=== PATIENT | male | born 1970 | race Caucasian/White ===

== ENCOUNTER → 2019-06-03 09:34 | Outpatient (CLI) | payer OTHER, SELFPAY ==
[2019-06-03 09:55] LABS: Basophils # 0.1 K/mm3 (0-0.2); Eosinophils # 0.4 K/mm3 (0.0-0.4); Lymphocytes # 2.2 K/mm3 (0.7-4.5); Monocytes # 0.3 K/mm3 (0.1-1.0); Red Cell Distribution Width 13.3 % (11.5-17.5)
[2019-06-03 10:05] LABS: Basophils % 2.4 % (0.1-2.0); Eosinophils % 7.3 % (0.1-12.0); Hematocrit 58.8 % (42.0-52.0); Lymphocytes % 39.5 % (10-50); Mean Corpuscular HGB Conc 33.4 g/dL (31.8-35.4); Mean Corpuscular Hemoglobin 35.5 pg (27.0-31.2); Mean Corpuscular Volume 106.4 fl (80-94); Neutrophils # 2.5 K/mm3 (1.8-7.8); Neutrophils % 45.7 % (37.0-80.0); Platelet Count 236 K/mm3 (142-424); Red Blood Count 5.53 M/mm3 (4.60-6.20); White Blood Count 5.4 K/mm3 (4.8-10.8)
[2019-06-03 10:14] LABS: Hemoglobin 19.6 g/dL (14.1-18.0)
[2019-06-03 10:49] LABS: Alanine Aminotransferase 128 U/L (12-78); Albumin Level 4.1 gm/dL (3.4-5.0); Albumin/Globulin Ratio 1.1 (1.1-1.8); Alkaline Phosphatase 91 U/L (46-116); Anion Gap 17.1 mEq/L (5-15); Aspartate Amino Transferase 114 U/L (15-37); Bilirubin,Total 0.9 mg/dL (0.2-1.0); Blood Urea Nitrogen 10 mg/dL (7-18); Carbon Dioxide 24 mmol/L (21.0-32.0); Chloride 100 mmol/L (98-107); Chol/HDL Ratio 3.9 (1-3.5); Cholesterol 282 mg/dL (140-200); Creatinine,Serum 0.79 mg/dL (0.70-1.30); Estimated Glomerular Filt Rate 103 ml/min (>60); GFR (African American) 125 ML/MIN (>60); Globulin 3.8 gm/dl (1.3-3.2); Glucose 94 mg/dL (74-106); HDL Cholesterol 72 mg/dL (27-67); LDL Cholesterol 188 mg/dL (0-130); Potassium 4.1 mmoL/L (3.5-5.1); Prostate Specific Ag Screen 0.5 ng/mL (0.0-4.0); Sodium 137 mmol/L (136-145); Total Protein,Serum 7.9 gm/dL (6.4-8.2); Triglycerides 111 mg/dL (30-200); VLDL Cholesterol 22 mg/dL (0-40)
[2019-06-03 15:08] LABS: Reticulocyte % (Auto) 0.8 % (0.9-3.2)
[2019-06-04 11:11] LABS: Folate 3.3 ng/mL (>3.0)
[2019-06-04 11:12] LABS: Vitamin B12 470 pg/mL (232-1245)
== END ==
PROVIDERS: Visit Provider Internal Medicine
DX: I10 Essential (primary) hypertension (principal); R71.8 Other abnormality of red blood cells; D75.89 Other specified diseases of blood and blood-forming organs; E78.5 Hyperlipidemia, unspecified; R39.198 Other difficulties with micturition
CPT/HCPCS: 36415; 80053; 80061; 82607; 82746; 85025; 85044; G0103

== ENCOUNTER 2019-06-06 11:09 | Outpatient (CLI) | payer OTHER, SELFPAY ==
[2019-06-06 11:40] VITALS: BP 151/94; PULSE 86; RESP 18
[2019-06-06 12:01] VITALS: BMI 31.8
--- NOTE | 2019-06-06 12:20 | PC.NURSE ---
1220-phlebotomy finished;collected recheck H&H
[2019-06-06 12:43] VITALS: BP 158/96; PULSE 83; RESP 18
[2019-06-06 12:51] LABS: Hematocrit 61.6 % (42.0-52.0)
[2019-06-06 12:52] LABS: Hemoglobin 19.1 g/dL (14.1-18.0)
== END 2019-06-06 12:43 | disposition home or self-care (01) ==
LOC: INF 11:10
PROVIDERS: PCP Internal Medicine; Visit Provider Internal Medicine
DX: R71.8 Other abnormality of red blood cells (principal)
CPT/HCPCS: 85014; 85018; 99195

== ENCOUNTER 2019-06-13 10:48 | Outpatient (CLI) | payer OTHER, SELFPAY ==
[2019-06-13 10:52] VITALS: BMI 31.5
[2019-06-13 11:12] LABS: Hematocrit 54.6 % (42.0-52.0)
[2019-06-13 11:19] LABS: Hemoglobin 18.5 g/dL (14.1-18.0)
[2019-06-13 11:35] VITALS: BP 189/107; PULSE 69; RESP 18
[2019-06-13 11:55] VITALS: BP 180/106; PULSE 68; RESP 18
== END 2019-06-13 12:00 | disposition home or self-care (01) ==
LOC: INF 10:49
PROVIDERS: Visit Provider Internal Medicine
DX: R71.8 Other abnormality of red blood cells (principal)
CPT/HCPCS: 36415; 85014; 85018; 99195

== ENCOUNTER 2019-06-21 10:58 | Outpatient (CLI) | payer OTHER, SELFPAY ==
[2019-06-21 11:00] VITALS: BMI 31.5
[2019-06-21 11:17] LABS: Hematocrit 51.5 % (42.0-52.0); Hemoglobin 17.3 g/dL (14.1-18.0)
[2019-06-21 11:50] VITALS: BP 170/107; PULSE 76; RESP 18
[2019-06-21 12:15] VITALS: BP 152/93; PULSE 66; RESP 18
== END 2019-06-21 12:15 | disposition home or self-care (01) ==
LOC: INF 10:58
PROVIDERS: Visit Provider Internal Medicine
DX: R71.8 Other abnormality of red blood cells (principal)
CPT/HCPCS: 36415; 85014; 85018; 99195

== ENCOUNTER → 2019-08-08 11:24 | Outpatient (CLI) | payer OTHER, SELFPAY ==
[2019-08-08 12:08] LABS: Hematocrit 50.2 % (42.0-52.0); Hemoglobin 16.5 g/dL (14.1-18.0)
== END ==
PROVIDERS: Visit Provider Internal Medicine
DX: D75.89 Other specified diseases of blood and blood-forming organs (principal)
CPT/HCPCS: 36415; 85014; 85018

== ENCOUNTER → 2019-12-07 10:56 | Outpatient (CLI) | payer OTHER, SELFPAY ==
[2019-12-07 11:26] LABS: Basophils # 0.5 K/mm3 (0-0.2); Basophils % 7.4 % (0.1-2.0); Eosinophils # 0.3 K/mm3 (0.0-0.4); Hematocrit 52.1 % (42.0-52.0); Hemoglobin 17.1 g/dL (14.1-18.0); Lymphocytes # 2.8 K/mm3 (0.7-4.5); Lymphocytes % 44.8 % (10-50); Mean Corpuscular HGB Conc 32.8 g/dL (31.8-35.4); Mean Corpuscular Hemoglobin 36.5 pg (27.0-31.2); Mean Corpuscular Volume 111.3 fl (80-94); Mean Platelet Volume 10.5 fl (7.4-10.4); Monocytes # 0.3 K/mm3 (0.1-1.0); Monocytes % 4.7 % (1.7-9.3); Neutrophils # 2.9 K/mm3 (1.8-7.8); Neutrophils % 46.5 % (37.0-80.0); Platelet Count 234 K/mm3 (142-424); Red Blood Count 4.69 M/mm3 (4.60-6.20); Red Cell Distribution Width 18.4 % (11.5-17.5); White Blood Count 6.3 K/mm3 (4.8-10.8)
[2019-12-07 11:53] LABS: Chloride 104 mmol/L (98-107); Potassium 4.3 mmoL/L (3.5-5.1); Sodium 138 mmol/L (136-145)
[2019-12-07 11:55] LABS: Blood Urea Nitrogen 13 mg/dl (9-20); Estimated Glomerular Filt Rate 89 ml/min (>60); GFR (African American) 108 ML/MIN (>60)
[2019-12-07 11:56] LABS: Alanine Aminotransferase 65 U/L (12-78); Albumin Level 4.5 g/dl (3.5-5.0); Albumin/Globulin Ratio 1.6 (1.1-1.8); Alkaline Phosphatase 84 U/L (38-126); Anion Gap 11.3 mEq/L (5-15); Aspartate Amino Transferase 79 U/L (17-59); Bilirubin,Total 0.6 mg/dl (0.2-1.3); Calcium 9.6 mg/dl (8.4-10.2); Carbon Dioxide 27 mmol/L (22.0-30.0); Cholesterol 170 mg/dl (140-200); Globulin 2.8 g/dL (1.3-3.2); Glucose 101 mg/dl (74-100); HDL Cholesterol 85 mg/dl (40-60); Total Protein,Serum 7.3 g/dl (6.3-8.2); Triglycerides 136 mg/dl (30-150); VLDL Cholesterol 27 mg/dL (0-40)
[2019-12-07 12:26] LABS: Prostate Specific Ag, Diagnost 0.422 ng/ml (0.0-4.0)
== END ==
PROVIDERS: Visit Provider Internal Medicine
DX: D75.1 Secondary polycythemia (principal); I10 Essential (primary) hypertension; E78.5 Hyperlipidemia, unspecified; N40.1 Benign prostatic hyperplasia with lower urinary tract symptoms
CPT/HCPCS: 36415; 80053; 80061; 84153; 85025

== ENCOUNTER 2020-07-02 15:46 | Emergency (ER) | payer OTHER, SELFPAY ==
[2020-07-02 16:00] VITALS: BP 140/101; PULSE 104; RESP 14; TEMP 36.1; O2SAT 96; BMI 31.5
--- NOTE | 2020-07-02 16:14 | PC.NURSE ---
SPOKE TO BERNIE MEDINA WHO GOT CLEARANCE FROM ESSENCE BUCKLEY TO CHANGE ORDER TO IN HOUSE COVID TEST
--- NOTE | 2020-07-02 16:21 | HMH.EDUTC ---
[facility] [place] Clinical Impression: Viral syndrome, Bronchitis, Tobacco dependence Disposition: Home, Self-Care Condition on Discharge: Good Instructions: DI for Viral Syndrome, Preventing the Spread of Coronavirus Discharge Instructions Additional Instructions: Drink plenty of fluids. Take tylenol for pain or fever. Return if you begin to have difficulty breathing. Follow up with your regular doctor. GO TO THE ER FOR ANY WORSENING SYMPTOMS You need to stop smoking pili. Prescriptions: Benzonatate [Tessalon Perle 100mg Cap] 100 mg PO TIDP PRN #30 cap PRN Reason: Cough Transmission Status: Re[facility] by [facility] Azithromycin [Z-Malcolm 250mg Tab*] 250 mg PO UD DOSE PK #6 tab Transmission Status: Received by [facility] Referrals: Jose Miguel Fuller [Primary Care Provider] - Time of Disposition: 17:19 Medical Decision Making - Medical Records Medical records reviewed: No: I reviewed the patient's medical records. - Donovan Inquiry Pt receiving controlled substance: No Vital Signs: 07/02/20 16:00 07/02/20 17:21 Temperature 97.0 F L 97.0 F L Temperature Source Oral Pulse Rate 104 H Pulse Rate [Right Brachial] 104 H Respiratory Rate 14 14 Blood Pressure 140/101 H Blood Pressure [Right Arm] 140/101 H Blood Pressure Mean [Right Arm] 114 Blood Pressure Source [Right Arm] Automatic Cuff Blood Pressure Position [Right Arm] Sitting 02 Sat by Pulse Oximetry 96 Oxygen Delivery Method Room Air - Lab Data Lab Results 07/02/20 16:37: Influenza Type A Ag Negative, Influenza Type B Ag Negative 07/02/20 16:37: Strep Scn Rapid Clinic Negative Orders (Tests/Meds): ORDERS Category Date Time Status Strep Screen Confirmation Stat Micro 07/02/20 16:37 Received - Radiology Data #1 Image(s): Chest Image Reviewed: Yes I reviewed the patient's radiology image, Yes I have reviewed radiologist's interpretation Preliminary Findings: No Infiltrates Seen PROCEDURE: XR CHEST 2V CLINICAL HISTORY: COUGH Smoker COMPARISON: No exams were available for comparison FINDINGS: The cardiomediastinal silhouette and pulmonary vascularity are within normal limits. Hyperinflation with attenuation of the peripheral pulmonary vessels consistent with COPD. No lobar consolidation or collapse. No acute bony abnormalities. IMPRESSION: COPD. No acute finding Dictated by: Trevor Barnett MD 07/02/2020 17:25 Trevor Barnett MD in [place] 07/02/2020 17:25 [facility] [place] - General Stated complaint: SYMPTOMS, COVID TEST,FLU TEST Time Seen by Provider: 07/02/20 16:21 Mode of Arrival: Ambulatory Source of Information: Patient Limitations: No Limitations Description of Symptoms (Recalled from Triage Doc. by RN): PATIENT C/O NAUSEA, DIARRHEA, BODY ACHES, AND FATIGUE THAT STARTED THURSDAY. REQUESTING A COVID TEST. HAD FIRST PART OF COVID VACCINE ON 06/12/20 HEENT Symptoms (Recalled from RN notes): No Resp Symptoms (Recalled from RN notes): No Skin Symptoms (Recalled from RN notes): No MS Symptoms (Recalled from RN notes): No Functional Status (Recalled from RN notes): WNL - History of Present Illness Provider Complaint: He states that he has been feeling bad for a week. He c/o of poor appetite, low grade fever, chilling, body aches and sore throat. He denies any known exposure to covid-19. He denies shortness of breath. He has smoked cigarettes for the past 30 years. - Related Data Home Medications Medication Instructions Recorded Confirmed bisoprolol 10 1 tab PO DAILY 90 Days #90 07/02/17 07/02/20 mg-hydrochlorothiazide 6.25 mg tablet sertraline 50 mg tablet 50 mg PO DAILY 30 Days #30 07/02/17 07/02/20 Atorvastatin Calcium [Lipitor 40mg 40 mg PO HS 07/02/20 07/02/20 Tablet*] Losartan Potassium [Cozaar 100mg 100 mg PO DAILY 07/02/20 07/02/20 Tablets] Previous Rx's Medication Instructions Recorded Azithromycin [Z-Malcolm 250mg Tab*] 250 mg PO UD DOSE P
--- NOTE | 2020-07-02 16:54 | XR_ITS ---
PROCEDURE: XR CHEST 2V CLINICAL HISTORY: COUGH Smoker COMPARISON: No exams were available for comparison FINDINGS: The cardiomediastinal silhouette and pulmonary vascularity are within normal limits. Hyperinflation with attenuation of the peripheral pulmonary vessels consistent with COPD. No lobar consolidation or collapse. No acute bony abnormalities. IMPRESSION: COPD. No acute finding Dictated by: Trevor Barnett MD 07/02/2020 17:25 Trevor Barnett MD in OV 07/02/2020 17:25
[2020-07-02 17:21] VITALS: BP 140/101; PULSE 104; RESP 14; TEMP 36.1; O2SAT 96
[2020-07-02 17:32] LABS: UTC Strep Screen (Rapid) Negative (Negative)
[2020-07-02 17:33] LABS: UTC Influenza A Antigen Negative (Negative)
[2020-07-02 17:34] LABS: UTC Influenza B Antigen Negative (Negative)
== END 2020-07-02 17:23 | disposition home or self-care (01) ==
PROVIDERS: Emergency Provider Nurse Practitioner Family; PCP Internal Medicine
DX: Z20.822 Contact with and (suspected) exposure to COVID-19 (principal); B34.9 Viral infection, unspecified; J20.9 Acute bronchitis, unspecified; F17.210 Nicotine dependence, cigarettes, uncomplicated; I10 Essential (primary) hypertension; E78.5 Hyperlipidemia, unspecified; Z79.899 Other long term (current) drug therapy
CPT/HCPCS: 71046; 87804; 87880; 99202; G0463; U0003

== ENCOUNTER → 2021-03-23 11:05 | Outpatient (CLI) | payer OTHER, SELFPAY ==
[2021-03-23 12:33] LABS: Influenza A, PCR Not Detected (NotDetected); Influenza B, PCR Not Detected (NotDetected)
[2021-03-23 13:21] LABS: Coronavirus 19, PCR Detected (NotDetected)
== END ==
PROVIDERS: PCP Emergency Medicine; Visit Provider Emergency Medicine
DX: Z20.822 Contact with and (suspected) exposure to COVID-19 (principal); U07.1 COVID-19
CPT/HCPCS: C9803; U0003; U0005

== ENCOUNTER 2021-03-23 13:57 | Outpatient (CLI) | payer OTHER, SELFPAY ==
[2021-03-23 14:30] VITALS: BP 166/94; PULSE 78; RESP 16; TEMP 37.1; O2SAT 96
[2021-03-23 14:45] VITALS: BP 162/92; PULSE 74; RESP 16; O2SAT 95
[2021-03-23 15:00] VITALS: BP 155/95; PULSE 75; RESP 16; TEMP 37; O2SAT 94
[2021-03-23 15:15] VITALS: BP 157/94; PULSE 74; RESP 16; O2SAT 95
[2021-03-23 15:30] VITALS: BP 150/97; PULSE 75; RESP 16; O2SAT 94
[2021-03-23 15:45] VITALS: BP 155/84; PULSE 74; RESP 16; O2SAT 95
== END 2021-03-23 16:25 | disposition home or self-care (01) ==
LOC: COVID.OUT 13:58 → INF 14:07
PROVIDERS: PCP Emergency Medicine; Visit Provider Emergency Medicine
DX: U07.1 COVID-19 (principal); Z23 Encounter for immunization
CPT/HCPCS: 96365

== ENCOUNTER → 2021-12-30 09:35 | Outpatient (CLI) | payer OTHER, SELFPAY ==
[2021-12-30 10:04] LABS: Basophils # 0.1 K/mm3 (0-0.2); Basophils % 1.7 % (0.1-2.0); Eosinophils # 0.4 K/mm3 (0.0-0.4); Eosinophils % 4.4 % (0.1-12.0); Hemoglobin 17.1 g/dL (14.1-18.0); Lymphocytes # 3.5 K/mm3 (0.7-4.5); Mean Corpuscular HGB Conc 34.2 g/dL (31.8-35.4); Mean Corpuscular Hemoglobin 36.7 pg (27.0-31.2); Mean Corpuscular Volume 107.4 fl (80-94); Mean Platelet Volume 7.5 fl (7.4-10.4); Monocytes # 0.3 K/mm3 (0.1-1.0); Monocytes % 4.1 % (1.7-9.3); Neutrophils # 3.9 K/mm3 (1.8-7.8); Neutrophils % 46.9 % (37.0-80.0); Platelet Count 258 K/mm3 (142-424); Red Blood Count 4.65 M/mm3 (4.60-6.20); Red Cell Distribution Width 13.2 % (11.5-17.5); White Blood Count 8.3 K/mm3 (4.8-10.8)
[2021-12-30 10:26] LABS: Alanine Aminotransferase 36 U/L (12-78); Albumin Level 4.4 g/dl (3.5-5.0); Albumin/Globulin Ratio 1.6 (1.1-1.8); Alkaline Phosphatase 130 U/L (38-126); Anion Gap 10.4 mEq/L (5-15); Aspartate Amino Transferase 59 U/L (17-59); Bilirubin,Total 0.3 mg/dl (0.2-1.3); Blood Urea Nitrogen 12 mg/dl (9-20); Calcium 9.8 mg/dl (8.4-10.2); Carbon Dioxide 25 mmol/L (22.0-30.0); Chloride 108 mmol/L (98-107); Chol/HDL Ratio 3.3 (1-3.5); Cholesterol 207 mg/dl (140-200); Estimated Glomerular Filt Rate 101 ml/min (>60); GFR (African American) 122 ML/MIN (>60); Globulin 2.8 g/dL (1.3-3.2); Glucose 118 mg/dl (74-100); HDL Cholesterol 62 mg/dl (40-60); Potassium 4.4 mmoL/L (3.5-5.1); Sodium 139 mmol/L (136-145); Total Protein,Serum 7.2 g/dl (6.3-8.2); Triglycerides 269 mg/dl (30-150); VLDL Cholesterol 54 mg/dL (0-40)
[2021-12-30 10:37] LABS: Direct LDL Cholesterol 92.58 mg/dL (100-129)
[2021-12-30 10:43] LABS: 25-OH Vitamin D, Total 44.5 ng/mL (30-100); Free T4 (Free Thyroxine) 0.72 ng/dl (0.78-2.19)
[2021-12-30 10:57] LABS: Thyroid Stimulating Hormone 1.49 uIU/mL (0.465-4.68)
== END ==
PROVIDERS: PCP Emergency Medicine; Visit Provider Emergency Medicine
DX: E55.9 Vitamin D deficiency, unspecified (principal); I10 Essential (primary) hypertension; E78.5 Hyperlipidemia, unspecified; E66.9 Obesity, unspecified; Z68.31 Body mass index [BMI] 31.0-31.9, adult; Z79.899 Other long term (current) drug therapy
CPT/HCPCS: 36415; 80053; 80061; 82306; 84439; 84443; 85025

== ENCOUNTER 2022-04-27 17:41 | Inpatient (IN) | payer OTHER, SELFPAY ==
[2022-04-27 17:42] VITALS: BP 141/82; PULSE 92; RESP 18; TEMP 36.8; O2SAT 96; BMI 31.5
--- NOTE | 2022-04-27 18:06 | CT_ITS ---
PROCEDURE INFORMATION: Exam: CT Abdomen And Pelvis With Contrast Exam date and time: 04/27/2022 6:30 PM Age: 52 years old Clinical indication: Abdominal pain; Generalized; Prior surgery; Surgery date: 6+ months; Surgery type: Umbilical hernia; Additional info: Abdomen pain TECHNIQUE: Imaging protocol: Computed tomography of the abdomen and pelvis with contrast. Radiation optimization: All CT scans at this facility use at least one of these dose optimization techniques: automated exposure control; mA and/or kV adjustment per patient size (includes targeted exams where dose is matched to clinical indication); or iterative reconstruction. Contrast material: ISOVUE; Contrast volume: 75 ml; Contrast route: IV; COMPARISON: CR XR CHEST 2V 07/02/2020 5:02 PM FINDINGS: Liver: Hepatic steatosis. Gallbladder and bile ducts: Mild gallbladder distension. Small gallstones. Pancreas: Normal. No ductal dilation. Spleen: Normal. No splenomegaly. Adrenal glands: Normal. No mass. Kidneys and ureters: 7 mm nonobstructing calculus lower pole right kidney. Bilateral pars defects. Associated 8 mm anterolisthesis of L5 with respect S1. Stomach and bowel: See Intraperitoneal space finding. Appendix: No evidence of appendicitis. Intraperitoneal space: Stranding of the mesenteric fat surrounding the pancreas. Small amount of mesenteric stranding in association with the duodenum. Associated mild wall thickening. Findings compatible with mild changes of duodenitis. Vasculature: Scattered regions of atherosclerotic vascular calcification within the abdominal aorta and common iliac arteries. Lymph nodes: Unremarkable. No enlarged lymph nodes. Urinary bladder: Unremarkable as visualized. Reproductive: Unremarkable as visualized. Bones/joints: See Kidneys and ureters finding. Soft tissues: Bilateral fat filled inguinal hernias. IMPRESSION: 1. Findings compatible with pancreatitis. 2. Small amount of mesenteric stranding in association with the duodenum. Associated mild wall thickening. Findings compatible with mild changes of duodenitis. 3. Please see above report for discussion of nonacute findings.
[2022-04-27 18:10] LABS: Microscopic, Urine URINE MICROSCOPIC (MICROSCOPIC)
[2022-04-27 18:13] LABS: Appearance,Urine CLEAR (Clear); Blood, Urine Negative (Negative); Color,Urine YELLOW (Yellow); Glucose,Urine (UA) Negative (Negative); Ketones,Urine Negative (Negative); Leukocyte Esterase,Urine Negative (Negative); Nitrate,Urine Negative (Negative); PH,Urine 5.5 (5.0-8.5); Protein,Urine 1+ (Negative); Specific Gravity, Urine >= 1.030 (1.005-1.030); Urobilinogen,Urine 0.2 EU/dl (0.2)
[2022-04-27 18:17] LABS: Alanine Aminotransferase 64 U/L (12-78); Albumin Level 4.3 g/dl (3.5-5.0); Albumin/Globulin Ratio 1.4 (1.1-1.8); Alkaline Phosphatase 185 U/L (38-126); Amorphous Sediment,Urine Trace /lpf; Amylase 695 U/L (30-110); Anion Gap 17.1 mEq/L (5-15); Aspartate Amino Transferase 174 U/L (17-59); Bilirubin,Urine Negative (Negative); Blood Urea Nitrogen 21 mg/dl (9-20); Calcium 8.9 mg/dl (8.4-10.2); Carbon Dioxide 24 mmol/L (22.0-30.0); Chloride 96 mmol/L (98-107); Creatinine Clearance Estimated 149 mL/min (50-200); Estimated Glomerular Filt Rate 101 ml/min (>60); GFR (African American) 122 ML/MIN (>60); Glucose 134 mg/dl (74-100); Mucus,Urine Trace /lpf; Potassium 4.1 mmoL/L (3.5-5.1); Sodium 133 mmol/L (136-145); Total Protein,Serum 7.3 g/dl (6.3-8.2)
[2022-04-27 18:18] LABS: Basophils # 0.3 K/mm3 (0-0.2); Basophils % 1.4 % (0.1-2.0); Eosinophils # 0.2 K/mm3 (0.0-0.4); Eosinophils % 1.1 % (0.1-12.0); Hematocrit 52.8 % (42.0-52.0); Hemoglobin 17.2 g/dL (14.1-18.0); Lymphocytes # 3.2 K/mm3 (0.7-4.5); Lymphocytes % 18.1 % (10-50); Mean Corpuscular HGB Conc 32.6 g/dL (31.8-35.4); Mean Corpuscular Hemoglobin 34.8 pg (27.0-31.2); Mean Corpuscular Volume 106.9 fl (80-94); Mean Platelet Volume 8.3 fl (7.4-10.4); Monocytes # 0.6 K/mm3 (0.1-1.0); Monocytes % 3.5 % (1.7-9.3); Neutrophils # 13.4 K/mm3 (1.8-7.8); Neutrophils % 75.9 % (37.0-80.0); Platelet Count 272 K/mm3 (142-424); Red Blood Count 4.94 M/mm3 (4.60-6.20); Red Cell Distribution Width 13.5 % (11.5-17.5); White Blood Count 17.6 K/mm3 (4.8-10.8)
[2022-04-27 18:20] LABS: MANUAL DIFFERENTIAL MANUAL DIFFERENTIAL (MANUAL DIFF)
[2022-04-27 18:49] LABS: Lipase 5849 U/L (23-300)
[2022-04-27 18:55] LABS: Lymphocytes % 18 % (10-50); Neutrophils % 78 % (42-76); Total Cells Counted 100
[2022-04-27 18:56] LABS: Hypersegmented Neutrophils 2+; Macrocytosis 2+; Platelet Estimate Normal
[2022-04-27 19:00] VITALS: BP 141/85; PULSE 79; O2SAT 92
--- NOTE | 2022-04-27 19:25 | HMH.EDGENADL ---
Discharge Plan Disposition Patient Disposition: Admitted As Inpatient Condition: Fair Chief Complaint: Abdominal Pain Prescriptions Prescriptions: No Action atorvastatin 40 mg tablet See Rx Instructions .ROUTE .COMPLEX Qty: 30 3RF Dose Instruction: TAKE ONE TABLET BY MOUTH EVERY DAY AT BEDTIME FOR cholesterol Rx Instructions: TAKE ONE TABLET BY MOUTH EVERY DAY AT BEDTIME FOR cholesterol bisoprolol-hydrochlorothiazide 10-6.25 mg tablet See Rx Instructions .ROUTE .COMPLEX Qty: 30 3RF Dose Instruction: TAKE ONE TABLET BY MOUTH EVERY DAY Rx Instructions: TAKE ONE TABLET BY MOUTH EVERY DAY losartan 100 mg tablet See Rx Instructions .ROUTE .COMPLEX Qty: 30 3RF Dose Instruction: TAKE ONE TABLET BY MOUTH EVERY DAY FOR hypertension Rx Instructions: TAKE ONE TABLET BY MOUTH EVERY DAY FOR hypertension sertraline 50 mg tablet See Rx Instructions .ROUTE .COMPLEX Qty: 30 3RF Dose Instruction: TAKE ONE TABLET BY MOUTH EVERY DAY Rx Instructions: TAKE ONE TABLET BY MOUTH EVERY DAY amlodipine [Norvasc] 5 mg tablet 5 mg PO DAILY Qty: 30 3RF Paxlovid (EUA) 300 mg (150 mg x 2)-100 mg tablets,dose pack See Rx Instructions PO .COMPLEX Qty: 30 0RF Rx Instructions: take TWO 150 mg tablets of nirmatrelvir with ONE 100 mg tablet of ritonavir twice daily for 5 days PO Referrals Follow up/Referrals: Khurram Ledesma MD [Primary Care Provider] - See instructions Clinical Impressions Clinical Impression: Acute gallstone pancreatitis, Cholelithiasis Discharge ED Provider: Jose Roberto Turcios General Adult HPI General Chief complaint: Abdominal Pain Stated complaint: upper adm pain Time Seen by Provider: 04/27/22 19:35 Mode of Arrival: Ambulatory Source of Information: Patient Limitations: No Limitations Description of Symptoms (Recalled from ER Triage Doc. by RN): c/o center abdomen pain and vomiting that started 2 days ago, normal BM this am History of Present Illness HPI narrative: Complains of epigastric pain and vomiting that started on Thursday, 2 days ago. Denies fever. Denies radiation of pain. States he has had prior diverticulitis. Has never had pancreatitis. States he drinks 2 drinks of alcohol per evening. He is a smoker. He does not have diabetes. He does have hyperlipidemia. Related Data Previous Rx's Medication Instructions Recorded amlodipine 5 mg tablet (Norvasc) 5 mg PO DAILY #30 tabs 12/31/21 atorvastatin 40 mg tablet See Rx Instructions .Route 12/31/21 .COMPLEX #30 tabs bisoprolol 10 See Rx Instructions .Route 12/31/21 mg-hydrochlorothiazide 6.25 mg .COMPLEX #30 tabs tablet losartan 100 mg tablet See Rx Instructions .Route 12/31/21 .COMPLEX #30 tabs sertraline 50 mg tablet See Rx Instructions .Route 12/31/21 .COMPLEX #30 tabs nirmatrelvir 300 mg (150 mg See Rx Instructions PO .COMPLEX 02/28/22 x2)-ritonavir 100 mg tablet,dose #30 tabs pack(EUA) (Paxlovid) Allergies Allergy/AdvReac Type Severity Reaction Status Date / Time No Known Allergies Allergy Verified 12/31/21 11:34 [facility] Social History (Updated 04/27/22 @ 19:51 by Jose Roberto Turcios MD) Smoking Status: Current every day smoker tobacco type: cigarettes packs per day: 1 alcohol intake: current counseling provided: none substance use type: denies use current occupational status: employed Travel in the last 8 weeks: None household members: spouse housing: house ROS Obtained: Yes Systems reviewed as appropriate & no additional complaints except as documented Constitutional Constitutional: Denies fever(s), Denies headache(s) and Denies weakness ENT Ears, Nose, Mouth, and Throat: Denies headache(s), Denies nasal discharge and Denies sore throat Cardiovascular Cardiovascular: Denies chest pain Respiratory Respiratory: Denies shortness of breath and Denies cough Gastrointestinal Gastrointestingal: Reports abdominal pain, marya
--- NOTE | 2022-04-27 19:39 | PC.NURSE ---
Dr. Turcios at BS
--- NOTE | 2022-04-27 19:41 | PC.NURSE ---
Dr. Turcios speaking with Dr. Salmon at this time.
[2022-04-27 20:00] VITALS: BP 157/91; PULSE 82; O2SAT 94
[2022-04-27 20:00] LABS: Coronavirus 19, PCR Not Detected (NotDetected); Influenza A, PCR Not Detected (NotDetected); Influenza B, PCR Not Detected (NotDetected)
--- NOTE | 2022-04-27 20:11 | US_ITS ---
PROCEDURE INFORMATION: Exam: US Abdomen, Limited; Right Upper Quadrant Exam date and time: 04/27/2022 8:23 PM Age: 52 years old Clinical indication: Abdominal pain; Other: Ruq pain; Prior surgery; Surgery date: 6+ months; Surgery type: Past HX of umbilical hernia repair; Additional info: Findings of mildly dilated gb and gallstones on CT TECHNIQUE: Imaging protocol: Real time ultrasound of the abdomen with image documentation. Limited exam focused on the right upper quadrant. COMPARISON: CT ABDOMEN PELVIS W CON 04/27/2022 6:30 PM FINDINGS: Liver: Normal. No masses. Gallbladder: Mild gallbladder distension. Cholelithiasis. Sludge also demonstrated within the gallbladder. Gallbladder wall thickened to 6 mm. Per technologist's annotation, positive Reich sign when scanning the gallbladder. Biliary ducts: Normal. No stones. No dilation. Pancreas: Pancreas not visualized secondary to gas-filled bowel loops. Right kidney: Right kidney measured 10.8 x 6.4 x 6.2 cm in length, AP and transverse dimensions. Portal venous: Hepatopetal flow within the portal vein. IMPRESSION: Findings compatible with cholelithiasis and cholecystitis.
--- NOTE | 2022-04-27 20:15 | PC.NURSE ---
Pt gone to RAD for U/S
--- NOTE | 2022-04-27 20:18 | EXP.HP ---
History of Present Illness *Admission Date: 04/27/22 *Reason for visit:: Abdominal Pain *History of present illness: Mr. Nixon is a 52-year-old male with a past medical history of HTN, Hyperlipidemia, Anxiety Disorder and Chronic Tobacco Use. [facility] 2.5 day history of abdominal pain in the bilateral mid-epigastric region associated with nausea and an episode of vomiting that has worsened over a 2.5 day period. Work-up in the ER included a CT of the abdomen and pelvis that showed mild gallbladder distention and small gallstones with no ductal dilation, stranding of the mestenteric fat surrounding the pancreas, elevated Amylase 695 and Lipase 5849. Total Bilirubin 2.0. UA was umremarkable. The patient will be admitted with initial impression: Acute Pancreatitis. He will be made NPO, given iv fluids, antiemetic, analgesics, we will trend Lipase and Amylase. US of the Right upper quadrant will be ordered for the am along with Surgery consult for evaluation and further recommendations. The plan of care was discussed with the patient and daughter at bedside. The patient verbalized understanding and agreement with the plan of care. [facility] Medical History (Updated 04/28/22 @ 07:51 by Mac Salomn MD) Anxiety disorder Hyperlipidemia Hypertension Surgical History H/O umbilical hernia repair Family History Family history of hypertension Father Cancer Unknown Social History Smoking Status: Current every day smoker tobacco type: cigarettes packs per day: 1 alcohol intake: current counseling provided: none substance use type: denies use current occupational status: employed Travel in the last 8 weeks: None household members: spouse housing: house Review of Systems Review of Systems Review of systems:: pertinent systems reviewed and negative unless documented below Constitutional Constitutional: Reports system reviewed and no additional complaints, except as documented Eyes Eyes: Reports system reviewed and no additional complaints, except as documented ENT Ears, Nose, Mouth, and Throat: Reports system reviewed and no additional complaints, except as documented *Cardiovascular Cardiovascular: Reports system reviewed and no additional complaints, except as documented *Respiratory Respiratory: Reports system reviewed and no additional complaints, except as documented *Gastrointestinal Gastrointestinal: Reports abdominal pain, Reports nausea and Reports vomiting *Genitourinary Genitourinary: Reports system reviewed and no additional complaints, except as documented *Musculoskeletal Musculoskeletal: Reports system reviewed and no additional complaints, except as documented and Denies numbness Integumentary/Breasts Skin/Breast: Reports system reviewed and no additional complaints, except as documented *Neurologic Neurologic: Denies numbness Psychiatric Psychiatric: Reports system reviewed and no additional complaints, except as documented Endocrine Endocrine: Reports system reviewed and no additional complaints, except as documented Hematologic/Lymphatic Hematologic/Lymphatic: Reports system reviewed and no additional complaints, except as documented Allergic/Immunologic Allergic/Immunologic: Reports system reviewed and no additional complaints, except as documented Meds Home Medications and Allergies Home Medications Medication Instructions Recorded Confirmed Type amlodipine 5 mg tablet (Norvasc) 5 mg PO DAILY Hypertension 04/27/22 04/27/22 History atorvastatin 40 mg tablet 40 mg PO DAILY Cholesterol 04/27/22 04/27/22 History bisoprolol 10 1 tab PO DAILY Hypertension 04/27/22 04/27/22 History mg-hydrochlorothiazide 6.25 mg tablet losartan 100 mg tablet 100 mg PO DAILY Hypertension 04/27/2204/09
--- NOTE | 2022-04-27 20:30 | PC.NURSE ---
Pt back from RAD
[2022-04-27 21:55] VITALS: BP 150/90; PULSE 78; RESP 18; TEMP 36.6; O2SAT 99
[2022-04-27 22:01] VITALS: BP 175/99; PULSE 84; RESP 20; TEMP 36.9; O2SAT 95; BMI 31.5
[2022-04-28 04:00] VITALS: BP 144/95; PULSE 94; RESP 18; TEMP 37.2; O2SAT 93
--- NOTE | 2022-04-28 06:55 | PC.NURSE ---
No acute changes since previous assessment. Pt has c/o of upper ABD pain multiple times this shift. Medicated per AUG. Pt has not had much relief with morphine. Per pt report, the toradol he received for breakthrough pain helped him a lot and he was able to rest. Pt has had no c/o of nausea or episodes of vomiting thus far during my shift. IV infusing per order. Maintaining NPO status. No other needs voiced at this time. Call light in reach.
[2022-04-28 07:01] LABS: Basophils # 0.1 K/mm3 (0-0.2); Mean Corpuscular Hemoglobin 34.8 pg (27.0-31.2); Mean Platelet Volume 8.1 fl (7.4-10.4); Red Blood Count 4.34 M/mm3 (4.60-6.20); Red Cell Distribution Width 13.4 % (11.5-17.5)
[2022-04-28 07:10] LABS: Eosinophils # 0.3 K/mm3 (0.0-0.4); Eosinophils % 2.6 % (0.1-12.0); Hematocrit 46.1 % (42.0-52.0); Lymphocytes # 1.9 K/mm3 (0.7-4.5); Lymphocytes % 18.8 % (10-50); Mean Corpuscular HGB Conc 32.7 g/dL (31.8-35.4); Mean Corpuscular Volume 106.3 fl (80-94); Monocytes # 0.3 K/mm3 (0.1-1.0); Monocytes % 3.1 % (1.7-9.3); Neutrophils # 7.7 K/mm3 (1.8-7.8); Neutrophils % 74.6 % (37.0-80.0); Platelet Count 184 K/mm3 (142-424); White Blood Count 10.3 K/mm3 (4.8-10.8)
[2022-04-28 07:17] LABS: Alanine Aminotransferase 44 U/L (12-78); Albumin Level 3.5 g/dl (3.5-5.0); Albumin/Globulin Ratio 1.3 (1.1-1.8); Alkaline Phosphatase 146 U/L (38-126); Amylase 800 U/L (30-110); Anion Gap 9.8 mEq/L (5-15); Aspartate Amino Transferase 93 U/L (17-59); Bilirubin,Total 2.4 mg/dl (0.2-1.3); Blood Urea Nitrogen 22 mg/dl (9-20); Calcium 8.2 mg/dl (8.4-10.2); Carbon Dioxide 26 mmol/L (22.0-30.0); Chloride 102 mmol/L (98-107); Creatinine Clearance Estimated 132 mL/min (50-200); Estimated Glomerular Filt Rate 88 ml/min (>60); GFR (African American) 106 ML/MIN (>60); Globulin 2.7 g/dL (1.3-3.2); Glucose 99 mg/dl (74-100); Potassium 3.8 mmoL/L (3.5-5.1); Sodium 134 mmol/L (136-145); Total Protein,Serum 6.2 g/dl (6.3-8.2)
[2022-04-28 07:25] LABS: Hemoglobin 15.1 g/dL (14.1-18.0)
--- NOTE | 2022-04-28 07:35 | EXP.SURG.CON ---
History of Present Illness *Admission Date: 04/27/22 *Reason for visit:: Gallstone pancreatitis *History of present illness: This is a 52-year-old gentleman seen in consultation from the Hospitalist Service after presenting to the Emergency Department with increasing abdominal pain. He currently feels somewhat better . Please see HPI from admission H&P forwarded below. Forwarded from admission H&P: Mr. Nixon is a 52-year-old male with a past medical history of HTN, Hyperlipidemia, Anxiety Disorder and Chronic Tobacco Use. He presents to [facility] due to a 2.5 day history of abdominal pain in the bilateral mid-epigastric region associated with nausea and an episode of vomiting that has worsened over a 2.5 day period. Work-up in the ER included a CT of the abdomen and pelvis that showed mild gallbladder distention and small gallstones with no ductal dilation, stranding of the mestenteric fat surrounding the pancreas, elevated Amylase 695 and Lipase 5849. Total Bilirubin 2.0. UA was umremarkable. The patient will be admitted with initial impression: Acute Pancreatitis. He will be made NPO, given iv fluids, antiemetic, analgesics, we will trend Lipase and Amylase. US of the Right upper quadrant will be ordered for the am along with Surgery consult for evaluation and further recommendations. The plan of care was discussed with the patient and daughter at bedside. The patient verbalized understanding and agreement with the plan of care. PFSH PFSH Medical History (Updated 04/28/22 @ 07:51 by Mac Salmon MD) Anxiety disorder Hyperlipidemia Hypertension Surgical History H/O umbilical hernia repair Family History Family history of hypertension Father Cancer Unknown Social History Smoking Status: Current every day smoker tobacco type: cigarettes packs per day: 1 alcohol intake: current counseling provided: none substance use type: denies use current occupational status: employed Travel in the last 8 weeks: None household members: spouse housing: house Review of Systems Constitutional Constitutional: Denies headache(s) and Denies weakness ENT Ears, Nose, Mouth, and Throat: Denies headache(s) *Musculoskeletal Musculoskeletal: Denies numbness *Neurologic Neurologic: Denies headache(s), Denies numbness and Denies weakness Meds Home Medications and Allergies Home Medications Medication Instructions Recorded Confirmed Type amlodipine 5 mg tablet (Norvasc) 5 mg PO DAILY htn 04/27/22 04/27/22 History atorvastatin 40 mg tablet 40 mg PO DAILY hld 04/27/22 04/27/22 History bisoprolol 10 1 tab PO DAILY htn 04/27/22 04/27/22 History mg-hydrochlorothiazide 6.25 mg tablet losartan 100 mg tablet 100 mg PO DAILY htn 04/27/22 04/27/22 History sertraline 50 mg tablet 50 mg PO DAILY Depression 04/27/22 04/27/22 History New Prescriptions to Start Prescriptions: Allergies Allergy/AdvReac Type Severity Reaction Status Date / Time No Known Allergies Allergy Verified 12/31/21 11:34 Exam (Inpt) Vital signs and Labs for Last 24 Hours: Temp Pulse Resp BP Pulse Ox 99.0 F 94 H 18 144/95 H 93 L 04/28/22 04:00 04/28/22 04:00 04/28/22 04:00 04/28/22 04:00 04/28/22 04:00 Laboratory Results - last 24 hr 04/27/22 17:45: Urine Color Yellow, Urine Appearance Clear, Urine pH 5.5, Ur Specific [place] >= 1.030, Urine Protein 1+, Urine Glucose (UA) Negative, Urine Ketones Negative, Urine Blood Negative, Urine Nitrate Negative, Urine Bilirubin Negative, Urine Urobilinogen 0.2, Ur Leukocyte Esterase Negative, Amorphous Sediment Trace, Urine Mucus Trace 04/27/22 17:45: WBC 17.6 H, RBC 4.94, H
--- NOTE | 2022-04-28 07:38 | HMH.PHAINT1 ---
Pharmacy Intervention Comments: Medication reconciliation completed via external fill history and patient interview. -Aretha Reyes, PharmD Candidate 2022
[2022-04-28 07:57] LABS: Lipase 6485 U/L (23-300)
[2022-04-28 09:10] VITALS: BP 146/96; PULSE 88; RESP 19; TEMP 37.1; O2SAT 93
[2022-04-28 16:00] VITALS: BP 136/90; PULSE 100; RESP 25; TEMP 36.6; O2SAT 94
--- NOTE | 2022-04-28 17:12 | PC.NURSE ---
Pain controlled better with toradol. Patient states he still has pain after drinking fluids but no distention noted. Patient states the pain has not changed from admission. VS stable and patient remains on room air. Patient able to ambulate throughout room. No other changes or complaints noted.
--- NOTE | 2022-04-28 19:36 | EXP.ACUTE.PN ---
Subjective *Date: 04/28/22 *Time: 19:36 Interval history: Pain stable today. Tolerating current regimen. Tolerating clear liquid diet. Still complaining of pain in upper abdomen mainly right upper and mid abdomen. Rahul afebrile. Denies shortness of breath, chest pain, nausea or vomiting. No diarrhea. No headache or confusion. Family at bedside on rounds. Medical Exam Vital signs and Labs for Last 24 Hours: Vital Signs Temp Pulse Pulse Resp BP BP Pulse Ox 04/28/22 16:00 97.8 F 100 H 25 H 136/90 94 L 04/28/22 09:10 98.7 F 88 19 146/96 H 93 L 04/28/22 04:00 99.0 F 94 H 18 144/95 H 93 L 04/27/22 22:01 98.4 F 84 20 175/99 H 95 04/27/22 21:55 98 F 78 18 150/90 H 04/27/22 20:00 82 157/91 H 94 L Intake and Output 04/28/22 04/28/22 04/28/22 07:59 15:59 23:59 Intake Total 1145 / 4777 480 / 4777 3152 / 4777 Output Total 0 / 550 550 / 550 0 / 550 Balance 1145 / 4227 -70 / 4227 3152 / 4227 Intake: Intake, Oral Amount 480 / 840 360 / 840 Intake, Total IV Amount 1145 / 3937 2792 / 3937 0.9 % Sodium Chloride 1,000 ml 1145 / 3737 2592 / 3737 @ 150 mls/hr IV .[id number] [facility] Rx# :[id number] Piperacillin/Tazo 4.5 gm In 0.9 200 / 200 % Sodium Chloride 100 ml @ 200 mls/hr IV Q6H [facility] Rx#:[id number] Output: Output, Urine Amount 0 / 550 550 / 550 0 / 550 Other: Number of Voids 0 2 Number of Unmeasured Voids 1 2 Number of Bowel Movements 0 Laboratory Results - last 24 hr 04/27/22 19:56: SARS-CoV-2 (PCR) Not detected, Influenza A Untype (PCR) Not detected, Influenza Type B (PCR) Not detected 04/28/22 06:34: Sodium 134 L, Potassium 3.8, Chloride 102, Carbon Dioxide 26, Anion Gap 9.8, BUN 22 H, Creatinine 0.90, Estimated Creat Clear 132, Estimated GFR 88, Est GFR ( Amer) 106, Glucose 99 D, Calcium 8.2 L, Total Bilirubin 2.4 H, AST 93 H D, ALT 44 D, Alkaline Phosphatase 146 H, Total Protein 6.2 L, Albumin 3.5 D, Globulin 2.7, Albumin/Globulin Ratio 1.3, Amylase 800 H*, Lipase 6485 H 04/28/22 06:34: WBC 10.3 D, RBC 4.34 L, Hgb 15.1 D, Hct 46.1, MCV 106.3 H, MCH 34.8 H, MCHC 32.7, RDW 13.4, Plt Count 184 D, MPV 8.1, Neut % (Auto) 74.6, Lymph % (Auto) 18.8, [place] % (Auto) 3.1, Eos % (Auto) 2.6, Baso % (Auto) 1.0, Neut # (Auto) 7.7, Lymph # (Auto) 1.9, [place] # (Auto) 0.3, Eos # (Auto) 0.3, Baso # (Auto) 0.1 I & O for Labs for Last 24 Hours: Intake & Output 04/25/22 04/26/22 04/27/22 04/28/22 23:59 23:59 23:59 23:59 Intake Total 4777 / 4777 Output Total 550 / 550 Balance 4227 / 4227 Weight 99.79 kg Constitutional: Present mild distress, obese and cooperative Head: Present atraumatic and normocephalic ENT: Present normal exam Neck: Present normal inspection Respiratory: Present normal respiratory effort; Absent rhonchi, wheezes or crackles Cardiac: Present Reg Rate and Rhythm GI: Present soft, tenderness (Right upper quadrant and epigastric region), guarding and normal bowel sounds; Absent distention Extremities: Present normal inspection and full ROM Skin: Present intact; Absent erythema Neuro: Present Grossly Intact, alert, awake, oriented x 3 and moves all extremities Assessment and Plan *Assessment and plan (1) Acute pancreatitis: Problem details: Likely biliary pancreatitis. Continue medical management Cholecystectomy once pancreatitis resolves Status: Acute Category: Medical Code(s): K85.90 - Acute pancreatitis without necrosis or infection, unspecified (2) Cholelithiasis and acute cholecystitis without obstruction: Status: Deleted Category: Medical Code(s): K80.00 - Calculus of gallbladder with acute cholecystitis without obstruction (3) Hypertension: Status: Acute Category: Medical Code(s): I10 - Essential (primary) hypertension (4) Hyperlipidemia: Status: Acute Category: Medical Code(s): E78.5 - Hyperlipidemia, u
[2022-04-28 20:00] VITALS: BP 171/96; PULSE 80; RESP 18; TEMP 37.3; O2SAT 91
[2022-04-29 04:00] VITALS: BP 152/92; PULSE 75; RESP 18; TEMP 37.2; O2SAT 93
--- NOTE | 2022-04-29 05:44 | PC.NURSE ---
Pt has c.o upper right quadrant pain 3x t/o shift. PRN medication administered. Pt states Toradol is more effective than Morphine. Abdomen is distended. No c/o n/v. Pt has been ambulating to BR independently. at bedside. Call light within reach.
[2022-04-29 06:00] VITALS: BMI 31.8
[2022-04-29 06:33] LABS: Basophils # 0.1 K/mm3 (0-0.2); Eosinophils # 0.5 K/mm3 (0.0-0.4); Eosinophils % 4.4 % (0.1-12.0); Hematocrit 46.6 % (42.0-52.0); Hemoglobin 15.1 g/dL (14.1-18.0); Lymphocytes # 2.2 K/mm3 (0.7-4.5); Lymphocytes % 19.2 % (10-50); Mean Corpuscular HGB Conc 32.4 g/dL (31.8-35.4); Mean Corpuscular Hemoglobin 35.4 pg (27.0-31.2); Mean Corpuscular Volume 109.3 fl (80-94); Mean Platelet Volume 8.5 fl (7.4-10.4); Monocytes # 0.3 K/mm3 (0.1-1.0); Neutrophils # 8.2 K/mm3 (1.8-7.8); Neutrophils % 72.4 % (37.0-80.0); Platelet Count 172 K/mm3 (142-424); Red Blood Count 4.26 M/mm3 (4.60-6.20); Red Cell Distribution Width 13.4 % (11.5-17.5); White Blood Count 11.3 K/mm3 (4.8-10.8)
[2022-04-29 06:39] LABS: Alanine Aminotransferase 38 U/L (12-78); Albumin Level 3.6 g/dl (3.5-5.0); Albumin/Globulin Ratio 1.2 (1.1-1.8); Alkaline Phosphatase 221 U/L (38-126); Anion Gap 13.9 mEq/L (5-15); Aspartate Amino Transferase 81 U/L (17-59); Bilirubin,Total 2.3 mg/dl (0.2-1.3); Blood Urea Nitrogen 16 mg/dl (9-20); Calcium 8.4 mg/dl (8.4-10.2); Carbon Dioxide 25 mmol/L (22.0-30.0); Chloride 102 mmol/L (98-107); Creatinine Clearance Estimated 132 mL/min (50-200); Estimated Glomerular Filt Rate 88 ml/min (>60); GFR (African American) 106 ML/MIN (>60); Globulin 2.9 g/dL (1.3-3.2); Glucose 95 mg/dl (74-100); Magnesium 1.6 mg/dl (1.6-2.3); Potassium 3.9 mmoL/L (3.5-5.1); Sodium 137 mmol/L (136-145); Total Protein,Serum 6.5 g/dl (6.3-8.2)
[2022-04-29 07:05] LABS: Amylase 350 U/L (30-110)
[2022-04-29 07:19] LABS: Lipase 2159 U/L (23-300)
--- NOTE | 2022-04-29 07:26 | P.PN_ITS ---
Subjective Patient reports: no new complaints, feels better, still having pain, pain is less and tolerating liquids well Exam Data for Last 24 hours Vital signs and Labs for Last 24 Hours: Temp Pulse Resp BP Pulse Ox 99.0 F 75 18 152/92 H 93 L 04/29/22 04:00 04/29/22 04:00 04/29/22 04:00 04/29/22 04:00 04/29/22 04:00 Laboratory Results - last 24 hr 04/28/22 06:34: Lipase 6485 H 04/29/22 06:10: WBC 11.3 H, RBC 4.26 L, Hgb 15.1, Hct 46.6, MCV 109.3 H, MCH 35.4 H, MCHC 32.4, RDW 13.4, Plt Count 172, MPV 8.5, Neut % (Auto) 72.4, Lymph % (Auto) 19.2, [place] % (Auto) 3.0, Eos % (Auto) 4.4, Baso % (Auto) 1.0, Neut # (Auto) 8.2 H, Lymph # (Auto) 2.2, [place] # (Auto) 0.3, Eos # (Auto) 0.5 H, Baso # (Auto) 0.1 04/29/22 06:10: Sodium 137, Potassium 3.9, Chloride 102, Carbon Dioxide 25, Anion Gap 13.9, BUN 16 D, Creatinine 0.90, Estimated Creat Clear 132, Estimated GFR 88, Est GFR ( Amer) 106, Glucose 95, Calcium 8.4, Magnesium 1.6, Total Bilirubin 2.3 H, AST 81 H, ALT 38, Alkaline Phosphatase 221 H, Total Protein 6.5, Albumin 3.6, Globulin 2.9, Albumin/Globulin Ratio 1.2 04/29/22 06:10: Amylase 350 H* D, Lipase 2159 H I & O for Last 24 hours: Intake & Output 04/26/22 04/27/22 04/28/22 04/29/22 11:59 11:59 11:59 11:59 Intake Total 1385 / 1385 3392 / 3392 Output Total 300 / 300 250 / 250 Balance 1085 / 1085 3142 / 3142 Weight 220 lb Constitutional Constitutional: no acute distress *Routine Respiratory Exam Respiratory: Absent respiratory distress *Routine Cardiovascular Exam Cardiovascular: Absent tachycardia *Routine Abdominal Exam Abdominal: Present soft and tenderness Comments: Less tender in upper abdomen Progress Note: A&P Assessment and plan (1) Acute pancreatitis: Problem details: Likely biliary pancreatitis. Continues to improve. Continue medical management Cholecystectomy once pancreatitis resolves (tentatively planned for next week as patient prefers to not undergo surgical intervention prior to the ) Status: Acute (2) Abnormal gallbladder ultrasound: Problem details: Thickening and distention likely secondary to recent passed stone . May not represent classic cholecystitis ; number, antibiotic coverage warranted. Plan cholecystectomy once pancreatitis resolves The patient prefers discharge home () with plans for cholecystectomy and likely cholangiogram next week. Status: Acute (3) Transaminitis: Status: Acute
[2022-04-29 07:49] VITALS: BMI 31.5
[2022-04-29 08:00] VITALS: BP 157/88; PULSE 83; RESP 17; TEMP 37; O2SAT 93
--- NOTE | 2022-04-29 11:00 | DIET.NUTRFU ---
Rounded with Dr. Porfirio Tidwell, consulted this RD to advance diet to GI soft, low residual to determine tolerance. With hopes to discharge today and further followup after holiday. included low fat diet education in discharge material.
--- NOTE | 2022-04-29 16:01 | EXP.DC.SUM ---
General Admission date:: 04/27/22 Discharge date: 04/29/22 HPI HPI HPI: This is a 52-year-old gentleman seen in consultation from the Hospitalist Service after presenting to the Emergency Department with increasing abdominal pain. He currently feels somewhat better . Please see HPI from admission H&P forwarded below. Forwarded from admission H&P: Mr. Nixon is a 52-year-old male with a past medical history of HTN, Hyperlipidemia, Anxiety Disorder and Chronic Tobacco Use. He presents to [facility] due to a 2.5 day history of abdominal pain in the bilateral mid-epigastric region associated with nausea and an episode of vomiting that has worsened over a 2.5 day period. Work-up in the ER included a CT of the abdomen and pelvis that showed mild gallbladder distention and small gallstones with no ductal dilation, stranding of the mestenteric fat surrounding the pancreas, elevated Amylase 695 and Lipase 5849. Total Bilirubin 2.0. UA was umremarkable. The patient will be admitted with initial impression: Acute Pancreatitis. He will be made NPO, given iv fluids, antiemetic, analgesics, we will trend Lipase and Amylase. US of the Right upper quadrant will be ordered for the am along with Surgery consult for evaluation and further recommendations. The plan of care was discussed with the patient and daughter at bedside. The patient verbalized understanding and agreement with the plan of care. Hospital Course Hospital Course Hospital Course: Patient was admitted with acute pancreatitis. Patient was made n.p.o. received supportive management (analgesia, IV fluids, antiemetics). During admission amylase and lipase have trended downwards. Patient has required Toradol for analgesia which have improved his symptoms. His nausea has improved with Zofran. Patient tolerated clear liquid diet and was advanced to full liquid diet which she was able to tolerate without pain or nausea. Surgery was consulted regarding pancreatitis, at this time they are not recommending performing cholecystectomy this admission and plan to do so on an outpatient basis. This was discussed with patient and the patient was agreeable with procedure tentatively on May 08, 2022. Patient was discharged with Toradol and Zofran to take on an outpatient basis. It was discussed to follow-up with his primary care physician in a timely manner. Advised patient to reduced ETOH and to take vitamin for B vitamin supplementation given macrocytosis. Recommend further evaluation of macrocytosis on outpatient basis. Discharge took greater than 30 minutes Exam Data for Last 24 hours Vital signs and Labs for Last 24 Hours: Temp Pulse Resp BP Pulse Ox 98.6 F 83 17 157/88 H 93 L 04/29/22 08:00 04/29/22 08:00 04/29/22 08:00 04/29/22 08:00 04/29/22 08:00 Laboratory Results - last 24 hr 04/29/22 06:10: WBC 11.3 H, RBC 4.26 L, Hgb 15.1, Hct 46.6, MCV 109.3 H, MCH 35.4 H, MCHC 32.4, RDW 13.4, Plt Count 172, MPV 8.5, Neut % (Auto) 72.4, Lymph % (Auto) 19.2, [place] % (Auto) 3.0, Eos % (Auto) 4.4, Baso % (Auto) 1.0, Neut # (Auto) 8.2 H, Lymph # (Auto) 2.2, [place] # (Auto) 0.3, Eos # (Auto) 0.5 H, Baso # (Auto) 0.1 04/29/22 06:10: Sodium 137, Potassium 3.9, Chloride 102, Carbon Dioxide 25, Anion Gap 13.9, BUN 16 D, Creatinine 0.90, Estimated Creat Clear 132, Estimated GFR 88, Est GFR ( Amer) 106, Glucose 95, Calcium 8.4, Magnesium 1.6, Total Bilirubin 2.3 H, AST 81 H, ALT 38, Alkaline Phosphatase 221 H, Total Protein 6.5, Albumin 3.6, Globulin 2.9, Albumin/Globulin Ratio 1.2 04/29/22 06:10: Amylase 350 H* D, Lipase 2159 H I & O for Last 24 hours: Intake & Output 04/26/22 04/27/22 04/28/22 04/29/22 23:59 23:59 23:59 23:59 Intake Total 8112 / 4897 540 / 540 Output Total 550 / 550 Balance 4227 / 4347 539 / 53
--- NOTE | 2022-04-30 15:54 | CARE MANAGER ---
Spoke with patient for post-discharge phone interview, patient is doing well with no complaints.
[2022-05-11 21:40] LABS: Hep A Ab, IgM Negative; Hepatitis B Core Antibody IgM Negative; Hepatitis B Surface Antigen Negative; Hepatitis C Antibody <0.1
== END 2022-04-29 17:32 | disposition home or self-care (01) | DRG 439 ==
LOC: ER 19:55 → 2ND 20:32
PROVIDERS: Internal Medicine Adolescent Medicine; Nurse Practitioner Family; Surgery; Admitting Provider Student in an Organized Health Care Education/Training Program; Emergency Provider Emergency Medicine; PCP Emergency Medicine; Visit Provider Student in an Organized Health Care Education/Training Program
DX: K85.90 Acute pancreatitis without necrosis or infection, unspecified (principal); K80.00 Calculus of gallbladder with acute cholecystitis without obstruction; I10 Essential (primary) hypertension; F41.9 Anxiety disorder, unspecified; E78.5 Hyperlipidemia, unspecified; F17.210 Nicotine dependence, cigarettes, uncomplicated
CPT/HCPCS: 36415; 74177; 76705; 80053; 80074; 81001; 82150; 83690; 83735; 85007; 85025; 99285; C9803; J2405; J2543; Q9967; U0003; U0005

== ENCOUNTER 2022-05-09 06:05 | Day surgery (SDC) | payer OTHER, SELFPAY ==
[2022-05-05 11:16] VITALS: BMI 31.4
[2022-05-09] VITALS (11 sets, daily range): BP systolic 101–128; BP diastolic 59–82; PULSE 70–86; RESP 12–18; TEMP 36.4–43; O2SAT 91–97
[2022-05-09 06:48] LABS: Basophils # 0.2 K/mm3 (0-0.2); Basophils % 1.5 % (0.1-2.0); Eosinophils # 1.1 K/mm3 (0.0-0.4); Eosinophils % 11.3 % (0.1-12.0); Hematocrit 46.4 % (42.0-52.0); Hemoglobin 14.9 g/dL (14.1-18.0); Lymphocytes # 3.7 K/mm3 (0.7-4.5); Lymphocytes % 36.4 % (10-50); Mean Corpuscular Hemoglobin 34.7 pg (27.0-31.2); Mean Corpuscular Volume 108.4 fl (80-94); Mean Platelet Volume 7.7 fl (7.4-10.4); Monocytes # 0.3 K/mm3 (0.1-1.0); Monocytes % 2.8 % (1.7-9.3); Neutrophils # 4.8 K/mm3 (1.8-7.8); Neutrophils % 47.9 % (37.0-80.0); Platelet Count 554 K/mm3 (142-424); Red Blood Count 4.28 M/mm3 (4.60-6.20); Red Cell Distribution Width 13.4 % (11.5-17.5); White Blood Count 10.1 K/mm3 (4.8-10.8)
--- NOTE | 2022-05-09 06:57 | P.PN_ITS ---
[facility] Disclaimer: The information contained in this section may have been updated after the patient was seen, as this information can be updated by other users. Medical History Anxiety disorder Bronchitis Gallbladder disease History of COVID-19 Hyperlipidemia Hypertension Pancreatitis Viral syndrome Surgical History H/O umbilical hernia repair Family History Father Family history of hypertension Unknown Cancer Social History Smoking Status: Current every day smoker tobacco type: cigarettes packs per day: 1 years smoked: 20 alcohol intake: current counseling provided: none substance use type: denies use current occupational status: employed Travel in the last 8 weeks: None household members: spouse housing: house [facility] Anesthesia Checklist Patient Identification Patient Identification: Arm Band and Verbal (Name & ) Structural Data Admitted From: Home Planned Operative Procedure/s: Lap. melody Consent for Planned Operative Procedure(s) Verified: Yes NPO Status Verified Time NPO: 00:00 Chart Verification Results Verified: CBC and BMP Additional verifications Anesthesia Reactions: No Hx Blood Transfusions: No Blood Transfusion Reaction: No Airway Assessment C-Spine Mobility Assessed: Yes TMJ Mobility Assessed: Yes Dentition: Good Dentition Neurological Assessment Level of Consciousness: Awake Hx Seizures: No Numbness or tingling in extremities: No Anesthesia Plan Anesthesia Risk discussed: Yes Anesthesia Plan: Verified ASA Class: II Anesthesia Type: General
[2022-05-09 07:03] LABS: Chloride 105 mmol/L (98-107); Potassium 3.2 mmoL/L (3.5-5.1); Sodium 141 mmol/L (136-145)
[2022-05-09 07:05] LABS: Alanine Aminotransferase 27 U/L (12-78); Amylase 100 U/L (30-110); Aspartate Amino Transferase 40 U/L (17-59); Blood Urea Nitrogen 10 mg/dl (9-20); Creatinine Clearance Estimated 149 mL/min (50-200); Estimated Glomerular Filt Rate 101 ml/min (>60); GFR (African American) 122 ML/MIN (>60)
[2022-05-09 07:06] LABS: Albumin Level 3.9 g/dl (3.5-5.0); Albumin/Globulin Ratio 1.4 (1.1-1.8); Alkaline Phosphatase 129 U/L (38-126); Anion Gap 8.2 mEq/L (5-15); Bilirubin,Total 0.3 mg/dl (0.2-1.3); Calcium 9.6 mg/dl (8.4-10.2); Carbon Dioxide 31 mmol/L (22.0-30.0); Globulin 2.7 g/dL (1.3-3.2); Glucose 95 mg/dl (74-100); Lipase 253 U/L (23-300); Total Protein,Serum 6.6 g/dl (6.3-8.2)
--- NOTE | 2022-05-09 08:22 | P.OP_ITS ---
Date of procedure: 05/09/22 Pre-op Diagnosis:: Gallstone pancreatitis Chronic calculus cholecystitis Post-op Diagnosis:: Same Procedure performed:: Laparoscopic cholecystectomy (intraoperative cholangiogram not performed secondary to focal inflammatory response and tissue thickening in and around the infundibulum) Surgeon:: Mac Salmon MD [employer] MACHINE OPERATOR:: Melissarosa Costellokrystal Anesthesia: GETA Estimated blood loss (mL): 15 Operative findings:: Significant gallbladder distention Moderate to severe pericholecystic fat stranding Infundibular thickening and focal increased inflammatory response Dome down approach utilized secondary to above findings Operative note:: After informed consent was obtained, the patient was taken to the operating room and placed in the supine position. General anesthesia was induced and the abdo men was prepped and draped in a sterile fashion. After infiltration with local anesthetic an infraumbilical incision was made. A Veress needle was placed in position. The abdomen was insufflated. A 5 mm optical trocar was placed in position. Under direct visualization, a 12 mm trocar was placed in the subxiphoid position and 2 additional 5 mm trocars were placed in the right upper quadrant. The gallbladder was elevated up and over the liver margin. The tissue around the cystic duct/infundibular region was carefully dissected. Significant tissue thickening and focal inflammatory response noted. The decision was made to forego attempts at intraoperative cholangiogram, as well as, to proceed with a dome down approach . The tissue in the retrocholecystic space was carefully dissected with harmonic tianna allowing for dissection of the gallbladder away from the liver margin. Endoloops (x2) were then utilized to control the infundibulum. Transection above the site with harmonic tianna was then completed. The gallbladder was placed in a retrieval bag and removed through the subxiphoid trocar site. The right upper quadrant was thoroughly irrigated. No active bleeding or bile leak was noted. Fascia at the subxiphoid trocar site was reapproximated utilizing 0 Ethibond. The remaining trocars were removed. All wounds were irrigated and skin was closed with 4-0 Monocryl in a subcuticular fashion. Steri-Strips were applied. The patient's anesthetic agents were reversed and extubation was completed prior to transfer to recovery in stable condition. Condition: stable Disposition: PACU Specimens:: Gallbladder Complications:: No immediate
--- NOTE | 2022-05-09 08:31 | P.PNANES_ITS ---
[facility] Anesthesia Record Part I Anesthesia Record I Intake, IV Amount: 900 Estimated blood loss (mL): 15 Urine output (mL): 0 Blood Pressure: 128/72 SaO2: 92 Pulse Rate: 86 Respiratory Rate: 17 Temperature: 98.7 F Patient is:: Awake Stable to PACU at:: 08:27
--- NOTE | 2022-05-09 09:01 | SUR.PHASEI ---
[id number] called and gave detailed report to Estefani Lara RN [id number] transported via stretcher to post op. vital signs stable. denies pain at this time. left in stable condition with Estefani Lara RN at bedside.
--- NOTE | 2022-05-09 13:44 | P.PNANES_ITS ---
[facility] Anesthesia Record Part II Anesthesia Record Part II Discharge Time: 08:58 Destination: Surgical Day Care (OP Surgery) PACU nurse assessment reviewed?: Yes Patient Condition:: Good Anesthesia Complications:: None Swallowing reflex intact?: Yes Cyanosis?: No Blood Pressure: 111/64 Pulse Rate: 73 Temperature: 97.5 F Mental Status: Alert & Oriented Pain level:: 0 Nausea and/or vomitting:: None Intake, IV Amount: 0
== END 2022-05-09 09:43 | disposition home or self-care (01) ==
PROVIDERS: PCP Emergency Medicine; Visit Provider Surgery
PROC: (CPT 47562; principal; 2022-05-09 07:30)
DX: K80.10 Calculus of gallbladder with chronic cholecystitis without obstruction (principal); K85.10 Biliary acute pancreatitis without necrosis or infection; Z72.0 Tobacco use; Z79.899 Other long term (current) drug therapy
CPT/HCPCS: 47562; 80053; 82150; 83690; 85025; 96374; J0131; J2405

== ENCOUNTER 2023-07-13 10:43 | Outpatient (CLI) | payer OTHER, SELFPAY ==
--- NOTE | 2023-07-13 10:49 | XR_ITS ---
FINAL REPORT CLINICAL HISTORY: shoulder pain FINDINGS: LEFT SHOULDER 3 views demonstrate no acute fracture or dislocation. There are mild degenerative changes of the acromioclavicular joint. The visualized bony structures are well aligned. No soft tissue abnormality is seen. IMPRESSION: No acute process. Reviewed, Interpreted and Dictated by Stevie Rondon III, MD Transcribed by Casandra Lebron Authenticated and [facility]
--- NOTE | 2023-07-13 10:49 | XR_ITS ---
FINAL REPORT CLINICAL HISTORY: shoulder pain FINDINGS: RIGHT SHOULDER Three views demonstrate no acute fracture or dislocation. The visualized joint spaces are normally aligned. There are mild degenerative changes of the acromioclavicular joint. The soft tissues are unremarkable. IMPRESSION: No acute process. Reviewed, Interpreted and Dictated by Stevie Rondon III, MD Transcribed by Casandra Lebron Authenticated and [facility]
== END 2023-07-13 23:59 ==
PROVIDERS: PCP Internal Medicine; Visit Provider Orthopaedic Surgery
DX: M25.511 Pain in right shoulder (principal); M25.512 Pain in left shoulder
CPT/HCPCS: 73030

== ENCOUNTER 2023-08-04 15:07 | Outpatient (CLI) | payer OTHER, SELFPAY ==
--- NOTE | 2023-08-04 15:14 | MR_ITS ---
FINAL REPORT TECHNIQUE: Multiplanar and multisequence imaging of the shoulder was obtained without contrast. CLINICAL HISTORY: Rt Shoulder Pain. PAIN WHEN RAISING ARM ABOVE HEAD. WEAKNESS IN ARM COMPARISON: None FINDINGS: Bones and joints: There is no acute fracture, edema, or pathologic marrow replacement. Acromioclavicular joint degenerative disease is present and there is osteophytosis which narrows the supraspinatus outlet. There is also degenerative disease involving the glenohumeral joint as well. Rotator cuff: There is a full-thickness tear of the supraspinatus tendon and a full-thickness tear of the anterior infraspinatus tendon. Some of the posterior fibers of the infraspinatus tendon are intact. There is fatty atrophy of the teres minor, supraspinatus and infraspinatus muscles. Labrum: The glenohumeral ligaments appear intact. The biceps labral complex is not identified, likely secondary to a tear of the biceps tendon at the level of the biceps labral complex. The remainder of the labrum is intact. There is more distal biceps tendon thinning and attenuation, likely secondary to a chronic tear. Other: A small joint effusion is present as well as a small amount of fluid in the subacromial subdeltoid bursa. Remaining soft tissues are within normal limits. IMPRESSION: Full-thickness tear of the supraspinatus tendon and the anterior infraspinatus tendon, with some of the posterior fibers of the infraspinatus tendon intact. Fatty atrophy of the teres minor, supraspinatus and infraspinatus muscles. The biceps labral complex is not identified, likely secondary to a tear of the biceps tendon at that complex. The remainder of the labrum is intact. There is also more distal biceps tendon thinning and attenuation, likely a chronic tear. Reviewed, Interpreted and Dictated by Marika Valenzuela MD Transcribed by Clarisse Fuchs Authenticated and [facility]
== END 2023-08-04 23:59 ==
LOC: RAD 15:08
PROVIDERS: PCP Internal Medicine; Visit Provider Orthopaedic Surgery
DX: M25.511 Pain in right shoulder (principal)
CPT/HCPCS: 73221

== ENCOUNTER 2023-09-04 10:49 | Outpatient (CLI) | payer OTHER, SELFPAY ==
--- NOTE | 2023-09-04 10:52 | XR_ITS ---
FINAL REPORT CLINICAL HISTORY: soa COMPARISON: 07/02/2020 FINDINGS: 2 views of the chest were obtained. The heart and mediastinum are unremarkable. The lungs are clear. There is no pneumothorax. IMPRESSION: No acute cardiopulmonary process. Reviewed, Interpreted and Dictated by Aarti Frazier MD Transcribed by JOSE EDUARDO Hernandez Authenticated and [facility]
[2023-09-04 13:31] LABS: Coronavirus 19, PCR Not Detected (NotDetected); Influenza A, PCR Not Detected (NotDetected); Influenza B, PCR Not Detected (NotDetected)
[2023-09-04 14:00] LABS: Basophils # 0.2 K/mm3 (0-0.2); Basophils % 2.1 % (0.1-2.0); Eosinophils # 0.3 K/mm3 (0.0-0.4); Eosinophils % 3.6 % (0.1-12.0); Hematocrit 55.8 % (42.0-52.0); Hemoglobin 17.8 g/dL (14.1-18.0); Lymphocytes # 2.9 K/mm3 (0.7-4.5); Lymphocytes % 40.1 % (10-50); Mean Corpuscular HGB Conc 31.9 g/dL (31.8-35.4); Mean Corpuscular Hemoglobin 34.4 pg (27.0-31.2); Mean Corpuscular Volume 108.1 fl (80-94); Mean Platelet Volume 9.7 fl (7.4-10.4); Monocytes # 0.4 K/mm3 (0.1-1.0); Monocytes % 5.7 % (1.7-9.3); Neutrophils # 3.5 K/mm3 (1.8-7.8); Neutrophils % 48.5 % (37.0-80.0); Platelet Count 223 K/mm3 (142-424); Red Blood Count 5.16 M/mm3 (4.60-6.20); Red Cell Distribution Width 13.1 % (11.5-17.5); White Blood Count 7.1 K/mm3 (4.8-10.8)
[2023-09-04 14:02] LABS: Alanine Aminotransferase 38 U/L (12-78); Albumin Level 4.6 g/dl (3.5-5.0); Albumin/Globulin Ratio 1.6 (1.1-1.8); Alkaline Phosphatase 103 U/L (38-126); Anion Gap 10.5 mEq/L (5-15); Aspartate Amino Transferase 53 U/L (17-59); Bilirubin,Total 0.9 mg/dl (0.2-1.3); Blood Urea Nitrogen 17 mg/dl (9-20); Calcium 10.2 mg/dl (8.4-10.2); Carbon Dioxide 27 mmol/L (22.0-30.0); Chloride 105 mmol/L (98-107); Chol/HDL Ratio 3.5 (1-3.5); Cholesterol 223 mg/dl (140-200); Estimated Glomerular Filt Rate 78 ml/min (>60); GFR (African American) 94 ML/MIN (>60); Globulin 2.8 g/dL (1.3-3.2); Glucose 118 mg/dl (74-100); HDL Cholesterol 64 mg/dl (40-60); Potassium 4.5 mmoL/L (3.5-5.1); Sodium 138 mmol/L (136-145); Total Protein,Serum 7.4 g/dl (6.3-8.2); Triglycerides 123 mg/dl (30-150); VLDL Cholesterol 25 mg/dL (0-40)
[2023-09-04 14:10] LABS: NT Pro Brain Natriuretic Pep. 140 pg/mL (0-125)
[2023-09-04 14:13] LABS: Direct LDL Cholesterol 109.88 mg/dL (100-129)
[2023-09-04 14:19] LABS: 25-OH Vitamin D, Total 24.1 ng/mL (30-100)
[2023-09-04 14:32] LABS: Prostate Specific Ag Screen 0.5 ng/ml (0.0-4.0)
== END 2023-09-04 23:59 ==
LOC: RAD 10:50
PROVIDERS: PCP Family Medicine; Visit Provider Family Medicine
DX: R06.02 Shortness of breath (principal); R06.81 Apnea, not elsewhere classified; R05.8 Other specified cough; J40 Bronchitis, not specified as acute or chronic; R53.83 Other fatigue; R79.81 Abnormal blood-gas level; R79.89 Other specified abnormal findings of blood chemistry; R73.09 Other abnormal glucose; E78.5 Hyperlipidemia, unspecified; E55.9 Vitamin D deficiency, unspecified; I10 Essential (primary) hypertension; E66.9 Obesity, unspecified; Z68.33 Body mass index [BMI] 33.0-33.9, adult; Z79.899 Other long term (current) drug therapy; Z12.5 Encounter for screening for malignant neoplasm of prostate; F17.200 Nicotine dependence, unspecified, uncomplicated
CPT/HCPCS: 71046; 80053; 80061; 82306; 83036; 83880; 85025; 87636; G0103

== ENCOUNTER 2023-09-04 12:38 | Outpatient (CLI) | payer OTHER, SELFPAY ==
[2023-09-04 15:51] LABS: Vitamin B12 394 pg/mL (239-931)
== END 2023-09-04 23:59 ==
LOC: LAB.DROPOF 09-07 12:38
PROVIDERS: PCP Family Medicine; Visit Provider Family Medicine
DX: D75.89 Other specified diseases of blood and blood-forming organs (principal)
CPT/HCPCS: 82607

== ENCOUNTER 2023-09-04 13:41 | Outpatient (CLI) | payer OTHER, SELFPAY | END 2023-09-04 23:59 | LOC: LAB.DROPOF 13:41 | PROVIDERS: PCP Family Medicine; Visit Provider Family Medicine | DX: D75.89 Other specified diseases of blood and blood-forming organs (principal) ==

== ENCOUNTER 2023-09-18 06:51 | Outpatient (CLI) | payer SELFPAY ==
--- NOTE | 2023-09-18 06:58 | CT_ITS ---
APPROVED REPORT Egg Caser: CLINICAL INDICATION Risk stratification, preventative care TECHNIQUE Image Acquisition: A 128 slice MDCT scanner (Mavina View) was used for data acquisition. A noncontrast coronary calcium scan was performed. A CT attenuation threshold of 130 Hounsfield units (HU) was used for the detection of calcium in contiguous voxels of 1 sq mm in area to be counted as individual lesions. A tube voltage of 120 KVp was used. The patient received no medications prior to the coronary calcium CT. Image Reconstruction Transaxial images were reconstructed at 0.67 mm slide thickness. Data was reviewed interactively on an advanced workstation capable of 2 and 3-dimensional displays in all conventional reconstruction formats, including multiplanar reformations, maximum intensity projections, curved multiplanar reformations, and volume rendered reconstructions. When applicable, selected routine images describing the relevant coronary anatomy and pathology were saved and sent to PACS. Complications None Technical Quality Overall image quality was good. Total DLP (Dose-Length Product) is 359.78 mGy-cm. The reported value represents the total of one or more individual components during the CT acquisition of this date and at this time, and as such, the same value may appear in more than one CT report depending on the interpreting/reporting physicians. COMPARISON None FINDINGS CT Coronary Calcium Scoring LMA (Left Main Artery) = 0 LAD (Left Anterior Descending) = 411 LCX (Left Coronary Circumflex) = 0 RCA (Right Coronary Artery) = 263 Total Calcium Score = 674 using the AJ-130 method. There is no calcification in the aortic valve, mitral annulus or mitral valve, pericardium, or myocardium. IMPRESSION -Coronary artery calcification is present. -Total Calcium Score (Agatston Score) = 674 using the AJ-130 method. -The observed calcium score of 674 is at 97th percentile for subjects of the same age, sex, and race/ethnicity. The interpretation of the calcium heart score is based on the following continuum*: 0 = no calcified plaque detected (risk of coronary artery disease is very low ??? less than 5%) 1-10 = calcium detected in extremely minimal levels (risk of coronary diseases is still low ??? less than 10%) 11-100 = mild levels of plaque detected with certainty (mild or minimal narrowing of heart arteries is likely) 101-400 = definite,at least moderate levels of plaque detected (relatively high risk of a heart attack within 3-5 years) >401-999 = extensive levels of plaque detected (high risk of heart attack, high levels of vascular disease are present, high likelihood of at least one significant coronary narrowing) *The calcium heart score quantifies the burden of coronary calcification/plaque in the coronary arteries. The calcium heart score does not evaluate the presence or the burden of non-calcified (i.e. soft) plaque. The coronary and cardiac findings of this Coronary Calcium CT were reviewed, reported, and signed by Isaiah Cronin MD (Physical Aerodynamicist). Conclusion Electronically signed by : Aicha Cronin MD 09/22/2023 11:50:46
== END 2023-09-18 23:59 ==
PROVIDERS: PCP Family Medicine; Visit Provider Family Medicine
DX: R06.02 Shortness of breath (principal); R06.00 Dyspnea, unspecified; R06.81 Apnea, not elsewhere classified; R53.83 Other fatigue
CPT/HCPCS: 75571

== ENCOUNTER 2023-09-18 12:41 | Outpatient (CLI) | payer OTHER, SELFPAY ==
--- NOTE | 2023-09-18 12:42 | CA_ITS ---
APPROVED REPORT EXAM: Comprehensive 2D, Doppler, and color-flow Echocardiogram [facility] Animal Care: Cristina Porter CRT Ht: 5 ft 10 in Wt: 231lbs BSA: 2.22 BP: 166/88 mmHg Indications: COPD, Shortness of Breath, Fatigue, Hyperlipidemia, Hypertension/HDD 2D Dimensions LA Volume 31.80 mL LA Volume Index 14.00 mL/m2 (M/F) 16-34 M-Mode Dimensions RVDd 2.35 cm (0.9-2.6) LA Diam 3.12 cm (1.9-4.0) LVDd 4.96 cm (3.5-5.7) LVDs 3.71 cm (3.5-5.7) IVSd 1.43 cm (0.6-1.1) PWd 1.07 cm (0.6-1.1) EF (Teich) 49.60% FS 25.20% EDV (Teich) 116.10 mL TAPSE 2.50 (<1.7) ESV (Teich) 58.50 mL LV Diastology E Decel Time 203 (160-240 msec) E/A Ratio 0.81 MED A' 11.90 cm/s LAT A' 14.20 cm/s Aortic Valve AO Peak GR. 9.40 mmHg Mitral Valve MV E Max Fabio. 59.0 (40-130 cm/s) MV A Velocity 73.0 (40-130 cm/s) E/A Ratio 0.81 MV PHT 60.0 ms Tricuspid Valve TR P. Velocity 170.00 cm/s RAP Estimate 10.00 mmHg RVSP 21.60 mmHg Left Ventricle The left ventricle is normal size. The left ventricular systolic function is normal. The left ventricular ejection fraction is within the normal range. There is increased LV wall thickness. There is normal LV segmental wall motion. Transmitral Doppler flow pattern suggests impaired LV relaxation. LVEF is 55%. Right Ventricle The right ventricle is normal size. The right ventricular systolic function is normal. Atria The left atrium size is normal. The right atrium size is normal. There is no Doppler evidence of interatrial shunt. Aortic Valve The aortic valve is normal in structure. There is no aortic valvular stenosis. No aortic regurgitation is present. Mitral Valve The mitral valve is normal in structure. No evidence of mitral valve stenosis. Trace mitral regurgitation. Tricuspid Valve The tricuspid valve leaflets are thin and pliable. Trace tricuspid regurgitation. There is insufficient TR jet to estimate RVSP. Pulmonic Valve The pulmonary valve is normal in structure. Trace pulmonic regurgitation. Great Vessels The aortic root is normal in size. The ascending aorta is normal in size. IVC is normal in size and collapses >50% with inspiration. Pericardium There is no pericardial effusion. Other Information Study Quality: Fair Conclusion Normal biventricular systolic function. No significant valvular stenosis or regurgitation. Electronically signed by : Aicha Cronin MD 09/23/2023 12:17:05
== END 2023-09-18 23:59 ==
LOC: RT 12:42
PROVIDERS: PCP Family Medicine; Visit Provider Family Medicine
DX: R06.00 Dyspnea, unspecified (principal); R06.02 Shortness of breath; R05.9 Cough, unspecified; R53.83 Other fatigue
CPT/HCPCS: 93306; 94060; 94618; 94726; 94729

== ENCOUNTER 2023-10-06 07:33 | Outpatient (CLI) | payer OTHER, SELFPAY ==
--- NOTE | 2023-10-06 07:33 | CT_ITS ---
APPROVED REPORT [employer]: CLINICAL INDICATION Chest Pain TECHNIQUE Image Acquisition: A 128 slice MDCT scanner ([email or web address] View) was used for data acquisition. A noncontrast coronary calcium scan was performed. A CT attenuation threshold of 130 Hounsfield units (HU) was used for the detection of calcium in contiguous voxels of 1 sq mm in area to be counted as individual lesions. Bolus tracking in the ascending aorta with a threshold of 180 HU was performed. Immediately afterwards, ECG synchronized cardiac CT was then performed from the cardiac base to apex using retrospective gating with ECG tube current modulation. A total of 85 mL of Isovue 370 mg/mL contrast medium was administered at 5 mL/sec followed by a saline flush using a biphasic injection protocol. A tube voltage of 120 KVp was used. The patient received the following medications prior to the cardiac CT. 75 mg of oral metoprolol 5 mg of intravenous metoprolol 15 mg of oral ivabradine 0.8 mg of sublingual nitroglycerin The average heart rate at the time of acquisition was 63 bpm and regular. Image Reconstruction Transaxial images were reconstructed at 0.67 mm slide thickness. Data was reviewed interactively on an advanced workstation capable of 2 and 3-dimensional displays in all conventional reconstruction formats, including multiplanar reformations, maximum intensity projections, curved multiplanar reformations, and volume rendered reconstructions. When applicable, selected routine images describing the relevant coronary anatomy and pathology were saved and sent to PACS. Complications None Technical Quality Overall image quality was fair. Coronary artery opacification was adequate. Total DLP (Dose-Length Product) is 1531.3 mGy-cm. The reported value represents the total of one or more individual components during the CT acquisition of this date and at this time, and as such, the same value may appear in more than one CT report depending on the interpreting/reporting physicians. COMPARISON None FINDINGS CT Coronary Calcium Scoring LMA (Left Main Artery) = 1 LAD (Left Anterior Descending) = 394 LCX (Left Coronary Circumflex) = 15 RCA (Right Coronary Artery) = 213 Total Calcium Score = 623 using the AJ-130 method. The observed calcium score of 623 is at 97th percentile for subjects of the same age, sex, and race/ethnicity. The interpretation of the calcium heart score is based on the following continuum*: 0 = no calcified plaque detected (risk of coronary artery disease is very low ??? less than 5%) 1-10 = calcium detected in extremely minimal levels (risk of coronary diseases is still low ??? less than 10%) 11-100 = mild levels of plaque detected with certainty (mild or minimal narrowing of heart arteries is likely) 101-400 = definite,at least moderate levels of plaque detected (relatively high risk of a heart attack within 3-5 years) >401-999 = extensive levels of plaque detected (high risk of heart attack, high levels of vascular disease are present, high likelihood of at least one significant coronary narrowing) *The calcium heart score quantifies the burden of coronary calcification/plaque in the coronary arteries. The calcium heart score is not able to evaluate the presence or burden of non-calcified (i.e. soft) plaque. There is no identifiable calcification in the aortic valve, mitral annulus or mitral valve, pericardium, or myocardium. Coronary CT Angiography The coronary arterial system is right dominant. Quantitative Stenosis Grading: Left Main (LM): The left main originates normally from the left sinus of Valsalva. There is 1 focus of calcification in the distal LM, with no luminal stenosis. Left Anterior Descending (LAD) and Diagonal Branches: The LAD gives off 3 diagonal branch(es). There is mixed calcified/noncalcified plaque in the proximal and mid LAD and involving the first diagonal branch, with up to 50-70% luminal stenosis. There is no evidence of LAD-myocardial bridge. Left Circumflex (LCX) and Obtuse Marginals (OM): The LCX gives off 1 Obtuse Marginal (OM) branch(es). There is mixed calcified/noncalcified plaque in the proximal LCx with < 30% luminal stenosis. Right Coronary Artery (RCA): The RCA originates normally from the right sinus of Valsalva. The RCA gives off a posterior descending artery (PDA) and posterolateral (PL) branches. There is mixed calcified/non-calcified plaque in the proximal RCA with up to 70-90% luminal stenosis. Non-Coronary Cardiac Findings: Analysis of the left ventricular (LV) structure and function was performed after 3-D reconstruction of the LV from axial images, with user-corrected automatic contouring for assessment of LV volumes and user-defined reconstruction from oblique planes for measurement of 3-D cardiac structure and function. -The left ventricle systolic function is normal. -There is no left atrial appendage filling defect. Two right pulmonary veins and two left pulmonary veins drain normally into the left atrium. -No pericardial thickening or calcification. -Central and branch pulmonary arteries in the [id number] are unremarkable. -Thoracic aorta within the visualized thoracic aortic-branches in the [id number] is unremarkable. Extracardiac Structures No significant extra-cardiac findings. Note, however, that this study is focused on the cardiac findings. IMPRESSION -Presence of coronary calcification with an Agatston score = 623 using the AJ-130 method. -The observed calcium score of 623 is at 97th percentile for subjects of the same age, sex, and race/ethnicity. -Possible significant flow-limiting atherosclerosis of the proximal LAD and proximal RCA. -CAD-RADS 4A. Management recommendations per ACC/AHA guidelines*, as clinically appropriate. *Recommendations: CAD RADS 0: Reassurance. Consider non-atherosclerotic causes of chest pain. CAD RADS 1: Consider non-atherosclerotic causes of chest pain. Consider preventive therapy and risk factor modification. CAD RADS 2: Consider non-atherosclerotic causes of chest pain. Consider preventive therapy and risk factor modification, particularly for patients with nonobstructive plaque in multiple segments. CAD RADS 3: Consider further functional testing. Consider symptom-guided anti-ischemic and preventive pharmacotherapy as well as risk factor modification per published guideline statements. CAD RADS 4A: Consider further functional testing or invasive coronary angiography with revascularization per published guideline statements. Consider symptom-guided anti-ischemic and preventive pharmacotherapy as well as risk factor modification per published guideline statements. CAD RADS 4B: Invasive coronary angiography recommended with revascularization per published guideline statements. Consider symptom-guided anti-ischemic and preventive pharmacotherapy as well as risk factor modification per published guideline statements. CAD RADS 5: Consider invasive angiography and/or viability assessment with revascularization per published guideline statements. Consider symptom-guided anti-ischemic and preventive pharmacotherapy as well as risk factor modification per published guideline statements. CRITICAL RESULT None COMMUNICATION Per this written report The coronary and cardiac findings of this CCTA were reviewed, reported, and signed by Isaiah Cronin MD ([employer]) Conclusion Electronically signed by : Aicha Cronin MD 10/12/2023 15:51:08
[2023-10-06 07:46] VITALS: BMI 33.0
[2023-10-06 07:55] VITALS: BP 160/98; PULSE 77; RESP 16; TEMP 36.2; O2SAT 94
[2023-10-06] MEDS: IVABRADINE HCL 7.5MG TABLET *IVABRADINE+METOPROLOL REGIMINE 15 MG PO (08:07)
[2023-10-06] MEDS: METOPROLOL TARTRATE 50MG TABLET *IVABRADINE+METOPROLOL REGIMINE 75 MG PO (08:07)
[2023-10-06 08:32] LABS: Chloride 107 mmol/L (98-107); Sodium 139 mmol/L (136-145)
[2023-10-06 08:35] LABS: Blood Urea Nitrogen 19 mg/dl (9-20); Creatinine Clearance Estimated 137 mL/min (50-200); Estimated Glomerular Filt Rate 88 ml/min (>60); GFR (African American) 106 ML/MIN (>60)
[2023-10-06 08:36] LABS: Calcium 9.5 mg/dl (8.4-10.2); Carbon Dioxide 28 mmol/L (22.0-30.0); Glucose 107 mg/dl (74-100)
[2023-10-06 09:19] VITALS: BP 180/119; PULSE 67; RESP 16; O2SAT 94
[2023-10-06] MEDS: NITROGLYCERIN 0.4MG SL TABLET 0.800000000000000044 MG SL (09:19)
[2023-10-06 09:22] VITALS: BP 127/89; PULSE 60; RESP 16; O2SAT 95
[2023-10-06] MEDS: IOPAMIDOL-370 (76%);100ML BOTTLE 100 ML IV (09:27)
[2023-10-06] MEDS: SODIUM CHLORIDE 0.9% 10ML SYR (RAD ONLY) 10 ML IV (09:27)
[2023-10-06] MEDS: 0.9 % SODIUM CHLORIDE 50 ML VIAL IV (09:27)
[2023-10-06 09:29] VITALS: BP 126/82; PULSE 64; RESP 18; O2SAT 95
[2023-10-06] MEDS: METOPROLOL TARTRATE 5MG/5ML VIAL *IVABRADINE+METOPROLOL REGIMINE 5 MG IV (09:29)
[2023-10-06 09:40] VITALS: BP 123/79; PULSE 63; RESP 18; O2SAT 95
[2023-10-06 09:45] VITALS: BP 130/79; PULSE 63; RESP 16; O2SAT 96
== END 2023-10-06 10:15 | disposition home or self-care (01) ==
PROVIDERS: PCP Family Medicine; Visit Provider Physician Assistant
DX: R93.1 Abnormal findings on diagnostic imaging of heart and coronary circulation (principal); R06.02 Shortness of breath; R06.81 Apnea, not elsewhere classified; R53.83 Other fatigue
CPT/HCPCS: 75571; 75574; 80048; Q9967

== ENCOUNTER 2023-10-19 08:13 | Day surgery (SDC) | payer OTHER, SELFPAY ==
[2023-10-19] VITALS (11 sets, daily range): BP systolic 114–153; BP diastolic 62–102; PULSE 66–85; RESP 17–22; TEMP 36.6–37.1; O2SAT 92–96; BMI 33.3
--- NOTE | 2023-10-19 07:42 | IR_ITS ---
APPROVED REPORT Patient Location: Outpatient [facility] Machine Operator: NILES Morataya RT (R) PROCEDURES Left heart catheterization Left ventriculogram Selective coronary angiogram INDICATION Abnormal CCTA, Angina pectoris, Numerous risk factors for coronary disease Informed consent was obtained prior to the procedure. COMPLICATIONS NONE Estimated Blood Loss: LESS THAN 10 ML TECHNIQUE One percent lidocaine used to anesthetize the right anterior aspect of the wrist. The right radial artery was accessed via the Seldinger technique. A 6 Azeri sheath was placed in the right radial artery. 2.5 mg of Verapamil, 800 mcg of nitroglycerin, 1mg Lidocaine and 5000 U Heparin were given through the arterial sheath. The papa catheter was also used to perform left heart catheterization, left ventriculogram and selective coronary angiogram. At the end of the procedure the sheath was removed good hemostasis was achieved using Traclet band, patient was transferred to the postop holding area in stable condition. ANGIOGRAPHIC RESULTS The left main artery Normal The left anterior descending artery Has proximal and mid vessel mild 10% luminal irregularities The circumflex artery Nondominant normal The right coronary artery Large dominant with proximal 10 to 20% eccentric stenosis The WILLS ventriculogram reveals Preserved 60% The left ventricular end-diastolic pressure Less than 10 mmHg IMPRESSION Mild nonflow limiting coronary disease Preserved ejection fraction Normal left ventricular end-diastolic pressure PLAN 1. Patient's symptoms appear to be primarily from lung disease 2. Recommend PFTs 3. Recommend sleep study 4. Also recommend referral to pulmonology for presumed advanced emphysema 5. Consider low-dose CAT scan for lung cancer screening 6. Recommend LDL less than 55 to be achieved with high intensity statin 7. Daily aspirin 81 mg Electronically signed by : Vahe Tidwell MD 10/19/2023 09:53:03
[2023-10-19 08:38] LABS: Basophils # 0.2 K/mm3 (0-0.2); Basophils % 2.5 % (0.1-2.0); Eosinophils # 0.3 K/mm3 (0.0-0.4); Eosinophils % 4.2 % (0.1-12.0); Hematocrit 54.3 % (42.0-52.0); Hemoglobin 17.5 g/dL (14.1-18.0); Lymphocytes # 2.9 K/mm3 (0.7-4.5); Lymphocytes % 43.3 % (10-50); Mean Corpuscular HGB Conc 32.1 g/dL (31.8-35.4); Mean Corpuscular Hemoglobin 34.2 pg (27.0-31.2); Mean Corpuscular Volume 106.5 fl (80-94); Mean Platelet Volume 7.8 fl (7.4-10.4); Monocytes # 0.3 K/mm3 (0.1-1.0); Monocytes % 3.8 % (1.7-9.3); Neutrophils # 3.1 K/mm3 (1.8-7.8); Neutrophils % 46.1 % (37.0-80.0); Platelet Count 185 K/mm3 (142-424); Red Cell Distribution Width 13.6 % (11.5-17.5); White Blood Count 6.7 K/mm3 (4.8-10.8)
[2023-10-19] MEDS: diazePAM 5MG TABLET 5 MG PO (08:53)
[2023-10-19 08:55] LABS: Anion Gap 12.4 mEq/L (5-15); Blood Urea Nitrogen 15 mg/dl (9-20); Calcium 9.5 mg/dl (8.4-10.2); Carbon Dioxide 26 mmol/L (22.0-30.0); Chloride 103 mmol/L (98-107); Creatinine Clearance Estimated 138 mL/min (50-200); Estimated Glomerular Filt Rate 88 ml/min (>60); GFR (African American) 106 ML/MIN (>60); Glucose 105 mg/dl (74-100); Potassium 4.4 mmoL/L (3.5-5.1); Sodium 137 mmol/L (136-145)
[2023-10-19] MEDS: diphenhydrAMINE 50MG/ML VIAL 50 MG IV (09:31)
[2023-10-19] MEDS: VERAPAMIL 2.5MG/ML 2ML VIAL 2.5 MG IV (09:32)
[2023-10-19] MEDS: NITROGLYCERIN 800MCG/8ML SYR (CATH LAB) 800 MCG IA (09:32)
[2023-10-19] MEDS: HEPARIN 1,000 UNITS/ML 10ML VIAL (CATH LAB) 10000 UNIT IV (09:33)
[2023-10-19] MEDS: LIDOCAINE 1% 10ML MDV 20 ML IJ (09:33)
[2023-10-19] MEDS: 0.9 % SODIUM CHLORIDE 500 ML 25 ML IV (09:34)
[2023-10-19] MEDS: HEPARIN 1,000 UNITS/500ML NS (CATH LAB) 3000 UNIT IV (09:34)
[2023-10-19] MEDS: FENTANYL 100MCG/2ML VIAL 50 MCG IV (09:56)
[2023-10-19] MEDS: MIDAZOLAM HCL 1MG/1ML 5ML VIAL 1 MG IV (09:56)
[2023-10-19] MEDS: IOPAMIDOL-370 (76%);100ML BOTTLE 70 ML IV (15:06)
== END 2023-10-19 12:49 | disposition home or self-care (01) ==
PROVIDERS: PCP Internal Medicine; Visit Provider Internal Medicine
DX: I25.118 Atherosclerotic heart disease of native coronary artery with other forms of angina pectoris (principal); R06.02 Shortness of breath; R93.1 Abnormal findings on diagnostic imaging of heart and coronary circulation; F17.210 Nicotine dependence, cigarettes, uncomplicated; Z79.899 Other long term (current) drug therapy; Z86.16 Personal history of COVID-19; I10 Essential (primary) hypertension; E78.5 Hyperlipidemia, unspecified
CPT/HCPCS: 80048; 85025; 93458; 99152; C1725; C1769; J1644; Q9967

== ENCOUNTER 2023-11-06 10:44 | Outpatient (CLI) | payer OTHER, SELFPAY ==
[2023-11-06 11:22] LABS: Erythrocyte Sedimentation Rate 1 mm/hr (0-20)
[2023-11-06 11:37] LABS: Uric Acid 3.3 mg/dl (3.5-8.5)
[2023-11-06 11:44] LABS: C-Reactive Protein 1.4 mg/L (0-4)
[2023-11-08 18:08] LABS: Antinuclear Antibodies, IFA Negative (.)
[2023-11-18 08:51] LABS: Antinuclear Antibodies (ANA) Negative
== END 2023-11-06 23:59 | disposition home or self-care (01) ==
LOC: LAB 10:46
PROVIDERS: PCP Family Medicine; Visit Provider Internal Medicine Pulmonary Disease
DX: R06.09 Other forms of dyspnea (principal); J84.9 Interstitial pulmonary disease, unspecified
CPT/HCPCS: 36415; 84550; 85651; 86038; 86140; 86225; 86235; 86431

== ENCOUNTER 2023-12-18 10:53 | Outpatient (CLI) | payer OTHER, SELFPAY ==
--- NOTE | 2023-12-18 10:56 | CT_ITS ---
FINAL REPORT TECHNIQUE: Axial CT images were performed from the lung apices through the upper abdomen with high-resolution imaging, supine expiration and prone inspiration views. Coronal and sagittal reformats were submitted. This study was performed with techniques to keep radiation doses as low as reasonably achievable (ALARA). Individualized dose reduction techniques using automated exposure control or adjustment of mA and/or kV according to the patient's size were employed. CLINICAL HISTORY: soa COMPARISON: None FINDINGS: There is no axillary adenopathy. There is no hilar or mediastinal mass or adenopathy. Severe left coronary artery calcifications are present. Heart size is normal. There is no pericardial or pleural effusion. Limited images of the upper abdomen reveal geographic low-attenuation areas in the liver, likely areas of fatty infiltration. No suspicious infiltrate or nodule is identified on lung window images. There are no changes of emphysema or bronchiectasis. No interstitial abnormalities are identified, and no air-trapping is present. IMPRESSION: No acute process. Severe left coronary artery calcifications are present. Reviewed, Interpreted and Dictated by Stevie Rondon III, MD Transcribed by Clarisse Fuchs Authenticated and [facility]
== END 2023-12-18 23:59 | disposition home or self-care (01) ==
LOC: RAD 10:54
PROVIDERS: PCP Family Medicine; Visit Provider Internal Medicine Pulmonary Disease
DX: J84.9 Interstitial pulmonary disease, unspecified (principal); F17.210 Nicotine dependence, cigarettes, uncomplicated
CPT/HCPCS: 71250

== ENCOUNTER 2024-07-12 10:05 | Outpatient (CLI) | payer OTHER, SELFPAY | END 2024-07-12 23:59 | disposition home or self-care (01) | LOC: RT 10:06 | PROVIDERS: PCP Family Medicine; Visit Provider Internal Medicine Pulmonary Disease | DX: R06.02 Shortness of breath (principal) ==

== ENCOUNTER 2025-05-16 10:53 | Outpatient (CLI) | payer OTHER, SELFPAY ==
--- NOTE | 2025-05-16 10:56 | XR_ITS ---
FINAL REPORT CLINICAL HISTORY: right shoulder pain COMPARISON: None FINDINGS: RIGHT SHOULDER 2 views demonstrate no acute fracture or dislocation. There are mild hypertrophic changes of the acromioclavicular joint. The glenohumeral joint is intact. The soft tissues are unremarkable. IMPRESSION: Mild AC joint osteoarthritis. No acute bony abnormality. Reviewed, Interpreted and Dictated by Aj Enciso MD Transcribed by Sosa Bishop Authenticated and [facility]
== END 2025-05-16 23:59 | disposition home or self-care (01) ==
LOC: RAD 10:54
PROVIDERS: PCP Family Medicine; Visit Provider Physician Assistant
DX: M19.011 Primary osteoarthritis, right shoulder (principal)
CPT/HCPCS: 73030